=== PATIENT | male | born 1945 ===

== ENCOUNTER 2017-10-12 15:56 | Inpatient (IN) | payer MEDICARE, MEDICAID ==
[~2017-10-12] VITALS: Ht 165.1 cm; Wt 72.6 kg
[2017-10-12] MEDS ORDERED: Isovue-300 100ml vial INJ PRN ×2 (16:15→16:45)
[2017-10-12 16:42] LABS: EOSINOPHILS % (AUTO) 0.1 % (0.0-3.0); HEMOGLOBIN 13.6 G/DL (14.2-18.0); LYMPHOCYTES % (AUTO) 15.3 % (20.0-45.0); MEAN CORPUSCULAR VOLUME 94 FL (80-99); MONOCYTES % (AUTO) 7.3 % (1.0-10.0); NEUTROPHILS % (AUTO) 76.3 % (45.0-75.0); PLATELET COUNT 309 K/UL (150-450); RED BLOOD COUNT 4.36 M/UL (4.70-6.10); RED CELL DISTRIBUTION WIDTH 13.8 % (11.6-14.8); WHITE BLOOD COUNT 10.8 K/UL (4.8-10.8)
[2017-10-12 16:59] LABS: ANION GAP 8 mmol/L (5-15); BLOOD UREA NITROGEN 50 mg/dL (7-18); CALCIUM 9.7 MG/DL (8.5-10.1); CARBON DIOXIDE 31 MMOL/L (21-32); CHLORIDE 95 MMOL/L (98-107); CREATININE 1.5 MG/DL (0.55-1.30); POTASSIUM 5.3 MMOL/L (3.5-5.1); SODIUM 134 MMOL/L (136-145)
--- NOTE | 2017-10-12 16:59 | Emergency Room Report ---
History of Present Illness General Chief Complaint: Abdominal Pain Source: Patient Present Illness HPI This patient presents at the instruction of his primary care physician. The patient has had ongoing epigastric pain for several days. He is also had abdominal distention to the point where he has had protrusion of his umbilicus. He states that this is new for him. He has had normal bowel movements. He denies change in color of stool or consistency of stool. He denies nausea or vomiting. He states that he underwent an ultrasound ordered by his primary care physician Dr. Farmer. He was told something was wrong with his gallbladder and he was instructed to report to the hospital. He denies fever or chills. He denies chest pain or shortness of breath. He has no other complaints. Allergies: Coded Allergies: LORAZEPAM (Verified Allergy, Unknown, 10/12/17) Patient History Past Medical History: see triage record, HTN, COPD, other - PVD Social History: Reports: smoking; Denies: alcohol use, drug use Reviewed Nursing Documentation: PMH: Agreed; PSxH: Agreed Nursing Documentation-PMH Hx Cardiac Problems: Yes - PVD Hx Hypertension: Yes Hx COPD: Yes History Of Psychiatric Problem: Yes - ANXIETY Review of Systems All Other Systems: negative except mentioned in HPI Physical Exam Vital Signs Date Time Temp Pulse Resp B/P (MAP) Pulse Ox O2 Delivery O2 Flow Rate FiO2 10/12/17 15:50 98.3 94 18 108/84 92 Nasal Cannula 2.0 98.2 Sp02 EP Interpretation: reviewed, normal General Appearance: no apparent distress, alert, GCS 15, non-toxic Head: normocephalic, atraumatic Eyes: bilateral eye normal inspection, bilateral eye PERRL ENT: hearing grossly normal, normal pharynx, no angioedema, normal voice Neck: full range of motion, supple/symm/no masses Respiratory: chest non-tender, normal breath sounds, no respiratory distress, no retraction, no accessory muscle use, speaking full sentences, wheezing, expiration Cardiovascular #1: regular rate, rhythm, no edema Gastrointestinal: normal bowel sounds, soft, no guarding, no rebound, distended , tenderness - TTP in the epigastrium and over the umbilicus, reducible umbilical hernia. Rectal: deferred Musculoskeletal: back normal, gait/station normal, normal range of motion, non- tender Neurologic: alert, oriented x3, responsive, motor strength/tone normal, sensory intact, speech normal Psychiatric: judgement/insight normal, memory normal, mood/affect normal, no suicidal/homicidal ideation Skin: normal color, no rash, warm/dry, well hydrated Medical Decision Making Diagnostic Impression: Primary Impression: COPD exacerbation Additional Impression: Possible choledocholithiasis ER Course This patient presents with COPD exacerbation and ongoing abdominal pain. He does have a dilated common bile duct. He could have a choledocho cholelithiasis. The patient's gallbladder does not appear infected. CT of the abdomen and pelvis shows no acute findings. The patient was given albuterol and Atrovent nebulizer treatments with significant improvement in his work of breathing. The patient will be admitted for further evaluation and treatment and further assessment for possible choledochocholelithiasis. Laboratory Tests Test 10/12/17 16:25 White Blood Count 10.8 K/UL (4.8-10.8) Red Blood Count 4.36 M/UL (4.70-6.10) L Hemoglobin 13.6 G/DL (14.2-18.0) L Hematocrit 41.0 % (42.0-52.0) L Mean Corpuscular Volume 94 FL (80-99) Mean Corpuscular Hemoglobin 31.2 PG (27.0-31.0) H Mean Corpuscular Hemoglobin Concent 33.2 G/DL (32.0-36.0) Red Cell Distribution Width 13.8 % (11.6-14.8) Platelet Count 309 K/UL (150-450) Mean Platelet Volume 7.1 FL (6.5-10.1) Neutrophils (%) (Auto) 76.3 % (45.0-75.0) H Lymphocytes (%) (Auto) 15.3 % (20.0-45.0) L Monocytes (%) (Auto) 7.3 % (1.0-10.0) Eosinophils (%) (Auto) 0.1 % (0.0-3.0) Basophils (%) (Auto) 1.0 % (0.0-2.0) Sodium Level 134 MMOL/L (136-145) L Potassium Level 5.3 MMOL/L (3.5-5.1) H Chloride Level 95 MMOL/L (98-107) L Carbon Dioxide Level 31 MMOL/L (21-32) Anion Gap 8 mmol/L (5-15) Blood Urea Nitrogen 50 mg/dL (7-18) H Creatinine 1.5 MG/DL (0.55-1.30) H Estimate Glomerular Filtration Rate 46.3 mL/min (>60) Glucose Level 120 MG/DL (74-106) H Calcium Level 9.7 MG/DL (8.5-10.1) Total Bilirubin 0.3 MG/DL (0.2-1.0) Aspartate Amino Transferase (AST) 25 U/L (15-37) Alanine Aminotransferase (ALT) 28 U/L (12-78) Alkaline Phosphatase 101 U/L (46-116) Total Creatine Kinase 42 U/L (26-308) Troponin I 0.000 ng/mL (0.000-0.056) Total Protein 8.5 G/DL (6.4-8.2) H Albumin 3.9 G/DL (3.4-5.0) Globulin 4.6 g/dL Albumin/Globulin Ratio 0.8 (1.0-2.7) L Lipase 146 U/L (73-393) CT/MRI/US Diagnostic Results CT/MRI/US Diagnostic Results : Imaging Test Ordered: US RUQ, CT abd/pelvis Impression Dilated GBD. OTW Nml. See official report. CT abd/pelvis: Minimal nodular infiltrate at the right lung base. Pulmonary emphysema. Appendix not identified. No colitis or bowel instruction. Small fat containing umbilical hernia. See official report. Last Vital Signs Date Time Temp Pulse Resp B/P (MAP) Pulse Ox O2 Delivery O2 Flow Rate FiO2 10/12/17 15:50 98.3 94 18 108/84 92 Nasal Cannula 2.0 98.2 Disposition: ADMITTED INPATIENT Condition: Serious Jami Armstrong DO Oct 12, 2017 16:59
[2017-10-12 17:04] LABS: ALANINE AMINOTRANSFERASE 28 U/L (12-78); ALBUMIN 3.9 G/DL (3.4-5.0); ALBUMIN/GLOBULIN RATIO 0.8 (1.0-2.7); ALKALINE PHOSPHATASE 101 U/L (46-116); ASPARTATE AMINO TRANSFERASE 25 U/L (15-37); BILIRUBIN,TOTAL 0.3 MG/DL (0.2-1.0); CREATINE KINASE 42 U/L (26-308)
[2017-10-12] MEDS ORDERED: Albuterol ud Inhalation HHN ONE (17:30)
[2017-10-12] MEDS ORDERED: Ipratropium 0.02% Inh Soln 2.5ml UD HHN ONE (17:30)
[2017-10-12] MEDS ORDERED: CYCLOBENZAPRINE10 MG ORAL (18:02)
[2017-10-12] MEDS ORDERED: GABAPENTIN600 MG ORAL (18:02)
[2017-10-12] MEDS ORDERED: WARFARIN SODIUM5 MG ORAL (18:02)
[2017-10-12] MEDS ORDERED: FUROSEMIDE20 M1 ORAL (18:02)
[2017-10-12] MEDS ORDERED: LISINOPRIL10 MG ORAL (18:02)
[2017-10-12] MEDS ORDERED: OMEPRAZOLE20 M2 ORAL (18:02)
[2017-10-12] MEDS ORDERED: NORCO 5-325 TA1 EACH ORAL (18:02)
[2017-10-12] MEDS ORDERED: MELATONIN1 MG PO (18:02)
[2017-10-12] MEDS ORDERED: PREDNISONE10 MG ORAL (18:02)
[2017-10-12] MEDS ORDERED: VENTOLIN HFA18 GM INH (18:02)
[2017-10-12] MEDS ORDERED: NORCO 10-325 T1 EACH ORAL (18:02)
[2017-10-12] MEDS ORDERED: DOCUSATE SODIU100 MG ORAL (18:02)
[2017-10-12] MEDS ORDERED: DUONEB 0.5-3(2.53 ML HHN (18:02)
[2017-10-12] MEDS ORDERED: KLONOPIN0.5 MG ORAL (18:02)
[2017-10-12] MEDS ORDERED: VITAMIN B-1100 MG ORAL (18:02)
[2017-10-12] MEDS ORDERED: TRAMADOL HCL50 MG ORAL (18:02)
[2017-10-12] MEDS ORDERED: ACETAMINOPHEN325 M1 ORAL (18:02)
[2017-10-12] MEDS ORDERED: MULTIVITAMINS1 EAC8 ORAL (18:02)
[2017-10-12] MEDS ORDERED: AMLODIPINE BESYL5 MG ORAL (18:02)
[2017-10-12 19:20] VITALS: BP 116/80
[2017-10-12 20:42] LABS: APPEARANCE,URINE CLEAR; BILIRUBIN, URINE NEGATIVE (NEGATIVE); COLOR,URINE PALE YELLOW; GLUCOSE, URINE (UA) NEGATIVE (NEGATIVE); KETONES,URINE NEGATIVE (NEGATIVE); LEUKOCYTE ESTERASE ,URINE NEGATIVE (NEGATIVE); NITRITE,URINE NEGATIVE (NEGATIVE); PH,URINE 7 (4.5-8.0); PROTEIN,URINE NEGATIVE (NEGATIVE); UROBILINOGEN,URINE NORMAL MG/DL (0.0-1.0)
[2017-10-12 21:25] VITALS: BP 114/78
[2017-10-12 22:30] VITALS: BP 108/69
[2017-10-12] MEDS ORDERED: traMADol 50mg tab ORAL PRN (23:45)
[2017-10-12] MEDS ORDERED: HYDROcodone/Acetamin 10/325 tab ORAL PRN (23:45)
[2017-10-12] MEDS ORDERED: Docusate 100mg cap ORAL PRN (23:45)
[2017-10-13] VITALS: BP 127/78
[2017-10-13] MEDS ORDERED: Cyclobenzaprine 10mg Tab ORAL PRN (00:15)
[2017-10-13] MEDS: cefTRIAXone 1 GM in D5W 55 ML IVPB SCH (00:52)
[2017-10-13] MEDS: HYDROcodone/Acetamin 10/325 tab ORAL PRN ×2 (00:53→20:48)
[2017-10-13] MEDS: Albuterol/Ipratropium 3ml neb HHN PRN ×2 (01:22→06:58)
[2017-10-13 04:00] VITALS: BP 136/68
[2017-10-13 08:00] VITALS: BP 107/66
--- NOTE | 2017-10-13 08:31 | Diagnostic Imaging Report ---
Indication: Abdominal pain, abnormal renal function tests Technique: Holliday-scale and duplex images of the upper abdomen were obtained Comparison: none Findings: Gallbladder is unremarkable, without stones, wall thickening, nor pericholecystic fluid. Sonographic Sherwood's sign is negative. Common bile duct measures 9 mm in diameter. No intrahepatic biliary ductal dilatation. Liver demonstrates normal echogenicity, no focal abnormality. Portal vein and hepatic veins are patent. Pancreas is obscured by bowel gas. Bowel gas Spleen is unremarkable. Left kidney measures 10.7 cm in length. Right kidney measures 11.9 cm length. Both kidneys demonstrate normal echogenicity. There is no hydronephrosis. Left kidney demonstrates a small cyst . Non-aneurysmal abdominal aorta . Impression: Negative for gallstones Mildly ectatic common bile duct, probably related to patient's age but downstream obstruction not completely excludable. Correlate with liver function tests Incidental finding left renal cyst Note inability to visualize the pancreas
--- NOTE | 2017-10-13 08:49 | Diagnostic Imaging Report ---
Clinical Indication: Abdominal pain and distention x2 days Technique: Patient given oral contrast. IV administration nonionic contrast. Venous phase spiral acquisition obtained through the abdomen and pelvis. Multiplanar reconstructions were generated. Total dose length product 605.58 mGycm. CTDIvol(s) 11.46 mGy. Dose reduction achieved using automated exposure control Comparison: none Findings: The appendix is not definitely visualized, but there are no findings to suggest acute appendicitis. No small bowel distention or small bowel wall thickening. There is mild diastasis of the rectus abdominis tendon. No free or loculated intraperitoneal air or fluid is evident. The distal esophagus, stomach, duodenum are unremarkable. There is a tiny fat-containing umbilical hernia The gallbladder is unremarkable. There is mild ectasia of the common hepatic duct, which measures 9 mm diameter. The downstream common bile duct is normal in caliber, however, and no obstructive pathology is demonstrated. There is no central intrahepatic ductal dilatation. The liver and pancreas are unremarkable. The spleen demonstrates a calcification, presumably on the basis of old granulomatous disease. There is also an accessory splenule. The right kidney demonstrates a subcentimeter upper pole low-attenuation lesion which is too small to characterize. The left kidney is unremarkable. There is an inferior vena cava filter in good position. The bladder is somewhat distended. No pelvic mass or adenopathy. No retroperitoneal or mesenteric mass or adenopathy. Fibrotic changes, hyperinflation, and bronchial wall thickening are seen at the lung bases. There are degenerative spondylosis changes. There is are superior endplate compression fracture deformities of the T12 and L3 vertebral bodies which are age-indeterminate Impression: No definite acute process. The appendix could not be visualized but no findings to suggest acute appendicitis are evident Minimal ectasia of the common hepatic duct, but normal caliber common bile duct and no downstream obstructive lesion demonstrated. Probably related to age Subcentimeter low-attenuation lesion within the right kidney, too small to characterize, is likely benign simple cysts. No further follow-up necessary The included lung bases demonstrate COPD changes T12 and L3 superior endplate compression fracture deformities, age indeterminate. Consider MRI for further evaluation it this is clinically relevant Other findings as noted, including inferior vena cava filter, accessory splenule, granulomatous disease within the spleen, small fat-containing umbilical hernia This agrees with the preliminary interpretation provided overnight by [facility] teleradiology service. The CT scanner at [facility] is accredited by the [employer] and the scans are performed using protocols designed to limit radiation exposure to as low as reasonably achievable to attain images of sufficient resolution adequate for diagnostic evaluation.
--- NOTE | 2017-10-13 08:50 | Diagnostic Imaging Report ---
Indication: Shortness of breath Technique: One view of the chest Comparison: none Findings: Lungs are somewhat hyperinflated. Tiny calcified nodules are seen in the lungs bilaterally. No acute infiltrates, effusions, or congestion Impression: No acute process COPD changes Evidence old granulomatous disease
[2017-10-13] MEDS ORDERED: Lisinopril 20mg tab ORAL SCH (09:00)
[2017-10-13] MEDS ORDERED: clonazePAM 0.5mg tab ORAL SCH (09:00)
[2017-10-13] MEDS: Thiamine 100mg tab ORAL SCH (09:01)
[2017-10-13] MEDS: Multivitamin w/Minerals tab ORAL SCH (09:01)
[2017-10-13] MEDS: Solu-MEDROL 40mg Inj IVP SCH ×2 (09:01→20:47)
[2017-10-13] MEDS: Norco 5mg/325mg tab ORAL SCH ×2 (09:02→17:52)
[2017-10-13 09:23] LABS: INR 1.3 (0.9-1.1)
[2017-10-13] MEDS ORDERED: Promethazine/Codeine 5ml UD ORAL PRN (11:45)
--- NOTE | 2017-10-13 11:51 | Consultation ---
History of Present Illness General Date patient seen: Oct 13, 2017 Chief Complaint: Abdominal Pain Present Illness HPI 71 year old male with hx of COPD, presented to ER with CC of epigastric pain for several days. He is also had abdominal distention . He denies nausea or vomiting. He underwent an ultrasound as outpatient which showed something wrong with his gallbladder and he was instructed to report to the hospital. He denies fever or chills. He has chronic SOB and with chronic dyspnea. In recent days he also has lots of phlegm. Allergies: Coded Allergies: LORAZEPAM (Verified Allergy, Unknown, 10/12/17) Medication History Scheduled Amlodipine Besylate* (Amlodipine Besylate*), 5 MG ORAL DAILY, (Reported) Clonazepam* (Klonopin*), 0.5 MG ORAL BID, (Reported) Furosemide* (Lasix*), 20 MG ORAL BID, (Reported) Gabapentin* (Gabapentin*), 600 MG ORAL THREE TIMES A DAY, (Reported) Hydrocodone Bit/Acetaminophen 5-325* ([place] 5-325*), 1 TAB ORAL BID, (Reported) Lisinopril* (Lisinopril*), 10 MG ORAL DAILY, (Reported) Multivitamin With Minerals (Multivitamins With Minerals*), 1 TAB ORAL DAILY, ( Reported) Omeprazole (Omeprazole), 20 MG ORAL AC, (Reported) Prednisone* (Prednisone*), 10 MG ORAL DAILY, (Reported) Thiamine Hcl* (Vitamin B-1*), 100 MG ORAL DAILY, (Reported) Warfarin Sod* (Warfarin Sod*), 5 MG ORAL DAILY, (Reported) Scheduled PRN Acetaminophen* (Acetaminophen 325MG Tablet*), 650 MG ORAL Q6H PRN for Mild Pain/ Temp > 100.5, (Reported) Albuterol Sulfate (Ventolin Hfa), 2 PUFFS INH Q4HR PRN for Shortness of Breath, (Reported) Cyclobenzaprine Hcl* (Flexeril*), 10 MG ORAL Q12HR PRN for Muscle Spasm, ( Reported) Docusate Sodium* (Docusate Sodium*), 100 MG ORAL DAILY PRN for Constipation, ( Reported) Hydrocodone Bit/Acetaminophen 10-325* ([place] 10-325*), 1 TAB ORAL Q8HR PRN for Moderate Pain (Pain Scale 4-6), (Reported) Ipratropium/Albuterol Sulfate (DuoNeb 0.5-3(2.5)mg/3ml), 3 ML HHN Q4HR PRN for Shortness of Breath, (Reported) Melatonin (Melatonin), 1 MG PO BEDTIME PRN for Insomnia, (Reported) Tramadol Hcl* (Ultram*), 50 MG ORAL Q6H PRN for Moderate Pain (Pain Scale 4-6), (Reported) Patient History Healthcare decision maker Resuscitation status Do Not Resuscitate Advanced Directive on File Yes Past Medical/Surgical History Past Medical/Surgical History: (1) COPD (chronic obstructive pulmonary disease) (2) Hypertension Review of Systems All Other Systems: negative except mentioned in HPI Physical Exam General Appearance: WD/WN Lines, tubes and drains: peripheral HEENT: normocephalic, atraumatic Neck: non-tender, normal alignment Respiratory/Chest: chest wall non-tender, lungs clear Cardiovascular/Chest: normal peripheral pulses, normal rate Abdomen: normal bowel sounds Genitourinary/Rectal: normal genital exam Extremities: normal range of motion Skin Exam: normal pigmentation 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 normal Last 24 Hour Vital Signs Date Time Temp Pulse Resp B/P (MAP) Pulse Ox O2 Delivery O2 Flow Rate FiO2 10/13/17 09:00 Nasal Cannula 2.0 10/13/17 09:00 107/66 10/13/17 09:00 87 107/66 10/13/17 08:00 98.1 87 20 107/66 (80) 91 98.1 10/13/17 08:00 87 10/13/17 04:00 98.1 94 20 136/68 (90) 98 98.1 10/13/17 03:36 81 10/13/17 01:32 88 18 98 Nasal Cannula 2.0 10/13/17 01:22 95 Nasal Cannula 2.0 10/13/17 01:22 89 18 95 Nasal Cannula 2.0 28 10/13/17 01:22 Nasal Cannula 2.0 28 10/13/17 01:22 89 18 Nasal Cannula 2.0 28 10/13/17 00:00 91 10/13/17 00:00 98.7 91 20 127/78 (94) 94 98.7 10/12/17 23:00 Nasal Cannula 2.0 10/12/17 23:00 Nasal Cannula 2.0 10/12/17 22:46 98.4 62 20 108/69 91 Nasal Cannula 2.0 28 98.4 10/12/17 22:30 62 20 108/69 91 Nasal Cannula 2.0 10/12/17 21:25 98.4 60 20 114/78 92 Nasal Cannula 2.0 98.4 10/12/17 19:20 98.3 59 20 116/80 90 Nasal Cannula 2.0 98.3 10/12/17 17:59 82 20 99 Nasal Cannula 2.0 28 10/12/17 17:36 88 20 Nasal Cannula 2.0 28 10/12/17 17:31 88 20 96 Nasal Cannula 2.0 28 10/12/17 15:50 98.3 94 18 108/84 92 Nasal Cannula 2.0 98.2 Intake and Output 10/12/17 10/13/17 19:00 07:00 Intake Total 1000 ml 255 ml Output Total 700 ml Balance 1000 ml -445 ml Intake Oral 200 ml IV Total 1000 ml 55 ml Output Urine Total 700 ml # Voids 3 Laboratory Tests Test 10/12/17 16:25 10/12/17 19:54 10/13/17 09:00 White Blood Count 10.8 K/UL (4.8-10.8) Red Blood Count 4.36 M/UL (4.70-6.10) L Hemoglobin 13.6 G/DL (14.2-18.0) L Hematocrit 41.0 % (42.0-52.0) L Mean Corpuscular Volume 94 FL (80-99) Mean Corpuscular Hemoglobin 31.2 PG (27.0-31.0) H Mean Corpuscular Hemoglobin Concent 33.2 G/DL (32.0-36.0) Red Cell Distribution Width 13.8 % (11.6-14.8) Platelet Count 309 K/UL (150-450) Mean Platelet Volume 7.1 FL (6.5-10.1) Neutrophils (%) (Auto) 76.3 % (45.0-75.0) H Lymphocytes (%) (Auto) 15.3 % (20.0-45.0) L Monocytes (%) (Auto) 7.3 % (1.0-10.0) Eosinophils (%) (Auto) 0.1 % (0.0-3.0) Basophils (%) (Auto) 1.0 % (0.0-2.0) Sodium Level 134 MMOL/L (136-145) L Potassium Level 5.3 MMOL/L (3.5-5.1) H Chloride Level 95 MMOL/L (98-107) L Carbon Dioxide Level 31 MMOL/L (21-32) Anion Gap 8 mmol/L (5-15) Blood Urea Nitrogen 50 mg/dL (7-18) H Creatinine 1.5 MG/DL (0.55-1.30) H Estimat Glomerular Filtration Rate 46.3 mL/min (>60) Glucose Level 120 MG/DL (74-106) H Calcium Level 9.7 MG/DL (8.5-10.1) Total Bilirubin 0.3 MG/DL (0.2-1.0) Aspartate Amino Transf (AST/SGOT) 25 U/L (15-37) Alanine Aminotransferase (ALT/SGPT) 28 U/L (12-78) Alkaline Phosphatase 101 U/L (46-116) Total Creatine Kinase 42 U/L (26-308) Troponin I 0.000 ng/mL (0.000-0.056) Total Protein 8.5 G/DL (6.4-8.2) H Albumin 3.9 G/DL (3.4-5.0) Globulin 4.6 g/dL Albumin/Globulin Ratio 0.8 (1.0-2.7) L Lipase 146 U/L (73-393) Urine Color Pale yellow Urine Appearance Clear Urine pH 7 (4.5-8.0) Urine Specific [place] 1.010 (1.005-1.035) Urine Protein Negative (NEGATIVE) Urine Glucose (UA) Negative (NEGATIVE) Urine Ketones Negative (NEGATIVE) Urine Occult Blood Negative (NEGATIVE) Urine Nitrite Negative (NEGATIVE) Urine Bilirubin Negative (NEGATIVE) Urine Urobilinogen Normal MG/DL (0.0-1.0) Urine Leukocyte Esterase Negative (NEGATIVE) Prothrombin Time 13.4 SEC (9.30-11.50) H Prothromb Time International Ratio 1.3 (0.9-1.1) H Microbiology Date/Time Source Procedure Growth Status 10/12/17 19:00 Rectum VRE Culture Pending Resulted 10/12/17 19:00 Rectum - Preliminary Resulted Height (Feet): 5 Height (Inches): 8.00 Weight (Pounds): 160 Medications Current Medications Medications (Trade) Dose Ordered Sig/Simone Route PRN Reason Start Time Stop Time Status Last Admin Dose Admin Acetaminophen (Tylenol) 650 mg Q6H PRN ORAL Mild Pain/Temp > 100.5 10/13/17 00:15 11/12/17 00:14 Acetaminophen/ Hydrocodone Bitart ([place] 10/325) 1 tab Q8HR PRN ORAL Moderate Pain (Pain Scale 4-6) 10/12/17 23:45 10/19/17 23:44 10/13/17 00:53 Acetaminophen/ Hydrocodone Bitart ([place] 5/325) 1 tab BID ORAL 10/13/17 09:00 10/20/17 08:59 10/13/17 09:02 Albuterol/ Ipratropium (Albuterol/ Ipratropium) 3 ml Q4HR PRN HHN Shortness of Breath 10/12/17 23:45 10/17/17 23:44 10/13/17 06:58 Amlodipine Besylate (Norvasc) 5 mg DAILY ORAL 10/13/17 09:00 11/12/17 08:59 Barium Sulfate (Readi-Cat 2) 450 ml NOW PRN ORAL Radiology Procedure 10/12/17 16:45 10/14/17 16:45 Ceftriaxone Sodium 1 gm/ Dextrose 55 ml @ 110 mls/hr Q24H IVPB 10/13/17 00:00 10/20/17 00:00 10/13/17 00:52 Clonazepam (KlonoPIN) 0.5 mg BID ORAL 10/13/17 09:00 10/20/17 08:59 10/13/17 09:01 Cyclobenzaprine HCl (Flexeril) 10 mg Q12HR PRN ORAL Muscle Spasm 10/13/17 00:15 11/12/17 00:14 Docusate Sodium (Colace) 100 mg DAILY PRN ORAL Constipation 10/12/17 23:45 11/11/17 23:44 Furosemide (Lasix) 20 mg BID ORAL 10/13/17 09:00 11/12/17 08:59 10/13/17 09:02 Gabapentin (Neurontin) 600 mg THREE TIMES A DAY ORAL 10/13/17 09:00 11/12/17 08:59 10/13/17 09:01 Iopamidol (Isovue-300 100ml) 100 ml NOW PRN INJ Radiology Procedure 10/12/17 16:45 Lisinopril (Prinivil) 10 mg DAILY ORAL 10/13/17 09:00 11/12/17 08:59 Methylprednisolone Sodium Succinate (Solu-MEDROL) 40 mg EVERY 12 HOURS IVP 10/13/17 09:00 11/12/17 08:59 10/13/17 09:01 Morphine Sulfate (Morphine Sulfate) 1 mg EVERY 6 HOURS PRN IVP Moderate Pain (Pain Scale 4-6) 10/12/17 23:45 10/19/17 23:44 Multivitamins Therapeutic (Therapeutic Multivitamin) 1 ea DAILY ORAL 10/13/17 09:00 11/12/17 08:59 10/13/17 09:01 Pantoprazole (Protonix) 40 mg BEFORE BREAKFAST ORAL 10/13/17 06:30 11/12/17 06:29 10/13/17 06:18 Thiamine HCl (Vitamin B1) 100 mg DAILY ORAL 10/13/17 09:00 11/12/17 08:59 10/13/17 09:01 Tramadol HCl (Ultram) 50 mg Q6H PRN ORAL Moderate Pain (Pain Scale 4-6) 10/12/17 23:45 10/19/17 23:44 Warfarin Sodium (Coumadin per pharmacy) 1 ea DAILY PRN MISC Per RX Protocol 10/13/17 08:30 11/12/17 08:29 Warfarin Sodium (Coumadin) 5 mg COUMADIN ORAL 10/13/17 17:00 10/18/17 16:59 Assessment/Plan Problem List: (1) COPD exacerbation ICD Codes: J44.1 - Chronic obstructive pulmonary disease with (acute) exacerbation SNOMED: 837968122 (2) Chronic anticoagulation ICD Codes: Z79.01 - 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
[2017-10-13 12:00] VITALS: BP 127/83
--- NOTE | 2017-10-13 12:18 | Cardiology Report ---
APPROVED REPORT EKG Measurement Heart [id number] Normal sinus rhythm Normal ECG
--- NOTE | 2017-10-13 12:31 | Consultation ---
History of Present Illness General Date patient seen: Oct 13, 2017 Chief Complaint: Abdominal Pain Present Illness HPI the pt is a 71 male with anxiety depression and epigastric pain for several days. He is also had abdominal distention to the point where he has had protrusion of his umbilicus. the pt is currently on klonopin and still has some anxiety. no depressive sxs. no si/hi Allergies: Coded Allergies: LORAZEPAM (Verified Allergy, Unknown, 10/12/17) Medication History Scheduled Amlodipine Besylate* (Amlodipine Besylate*), 5 MG ORAL DAILY, (Reported) Clonazepam* (Klonopin*), 0.5 MG ORAL BID, (Reported) Furosemide* (Lasix*), 20 MG ORAL BID, (Reported) Gabapentin* (Gabapentin*), 600 MG ORAL THREE TIMES A DAY, (Reported) Hydrocodone Bit/Acetaminophen 5-325* ([place] 5-325*), 1 TAB ORAL BID, (Reported) Lisinopril* (Lisinopril*), 10 MG ORAL DAILY, (Reported) Multivitamin With Minerals (Multivitamins With Minerals*), 1 TAB ORAL DAILY, ( Reported) Omeprazole (Omeprazole), 20 MG ORAL AC, (Reported) Prednisone* (Prednisone*), 10 MG ORAL DAILY, (Reported) Thiamine Hcl* (Vitamin B-1*), 100 MG ORAL DAILY, (Reported) Warfarin Sod* (Warfarin Sod*), 5 MG ORAL DAILY, (Reported) Scheduled PRN Acetaminophen* (Acetaminophen 325MG Tablet*), 650 MG ORAL Q6H PRN for Mild Pain/ Temp > 100.5, (Reported) Albuterol Sulfate (Ventolin Hfa), 2 PUFFS INH Q4HR PRN for Shortness of Breath, (Reported) Cyclobenzaprine Hcl* (Flexeril*), 10 MG ORAL Q12HR PRN for Muscle Spasm, ( Reported) Docusate Sodium* (Docusate Sodium*), 100 MG ORAL DAILY PRN for Constipation, ( Reported) Hydrocodone Bit/Acetaminophen 10-325* ([place] 10-325*), 1 TAB ORAL Q8HR PRN for Moderate Pain (Pain Scale 4-6), (Reported) Ipratropium/Albuterol Sulfate (DuoNeb 0.5-3(2.5)mg/3ml), 3 ML HHN Q4HR PRN for Shortness of Breath, (Reported) Melatonin (Melatonin), 1 MG PO BEDTIME PRN for Insomnia, (Reported) Tramadol Hcl* (Ultram*), 50 MG ORAL Q6H PRN for Moderate Pain (Pain Scale 4-6), (Reported) Patient History Limited by: medical condition History Provided By: Patient, Medical Record, PMD Healthcare decision maker Resuscitation status Do Not Resuscitate Advanced Directive on File Yes Past Medical/Surgical History Past Medical/Surgical History: (1) Pain (2) pain (3) COPD (chronic obstructive pulmonary disease) (4) Hypertension (5) Chronic anticoagulation (6) Biliary colic (7) COPD exacerbation Review of Systems Psychiatric: Reports: prior hx, anxiety, depressed feelings, emotional problems Physical Exam General Appearance: no apparent distress, alert Neurologic: oriented x 3, responsive, depressed affect Last 24 Hour Vital Signs Date Time Temp Pulse Resp B/P (MAP) Pulse Ox O2 Delivery O2 Flow Rate FiO2 10/13/17 09:00 Nasal Cannula 2.0 10/13/17 09:00 107/66 10/13/17 09:00 87 107/66 10/13/17 08:00 98.1 87 20 107/66 (80) 91 98.1 10/13/17 08:00 87 10/13/17 04:00 98.1 94 20 136/68 (90) 98 98.1 10/13/17 03:36 81 10/13/17 01:32 88 18 98 Nasal Cannula 2.0 28 10/13/17 01:22 95 Nasal Cannula 2.0 28 10/13/17 01:22 89 18 95 Nasal Cannula 2.0 28 10/13/17 01:22 Nasal Cannula 2.0 28 10/13/17 01:22 89 18 Nasal Cannula 2.0 28 10/13/17 00:00 91 10/13/17 00:00 98.7 91 20 127/78 (94) 94 98.7 10/12/17 23:00 Nasal Cannula 2.0 10/12/17 23:00 Nasal Cannula 2.0 10/12/17 22:46 98.4 62 20 108/69 91 Nasal Cannula 2.0 28 98.4 10/12/17 22:30 62 20 108/69 91 Nasal Cannula 2.0 10/12/17 21:25 98.4 60 20 114/78 92 Nasal Cannula 2.0 98.4 10/12/17 19:20 98.3 59 20 116/80 90 Nasal Cannula 2.0 98.3 10/12/17 17:59 82 20 99 Nasal Cannula 2.0 28 10/12/17 17:36 88 20 Nasal Cannula 2.0 28 10/12/17 17:31 88 20 96 Nasal Cannula 2.0 28 10/12/17 15:50 98.3 94 18 108/84 92 Nasal Cannula 2.0 98.2 Intake and Output 10/12/17 10/13/17 19:00 07:00 Intake Total 1000 ml 255 ml Output Total 700 ml Balance 1000 ml -445 ml Intake Oral 200 ml IV Total 1000 ml 55 ml Output Urine Total 700 ml # Voids 3 Laboratory Tests Test 10/12/17 16:25 10/12/17 19:54 10/13/17 09:00 White Blood Count 10.8 K/UL (4.8-10.8) Red Blood Count 4.36 M/UL (4.70-6.10) L Hemoglobin 13.6 G/DL (14.2-18.0) L Hematocrit 41.0 % (42.0-52.0) L Mean Corpuscular Volume 94 FL (80-99) Mean Corpuscular Hemoglobin 31.2 PG (27.0-31.0) H Mean Corpuscular Hemoglobin Concent 33.2 G/DL (32.0-36.0) Red Cell Distribution Width 13.8 % (11.6-14.8) Platelet Count 309 K/UL (150-450) Mean Platelet Volume 7.1 FL (6.5-10.1) Neutrophils (%) (Auto) 76.3 % (45.0-75.0) H Lymphocytes (%) (Auto) 15.3 % (20.0-45.0) L Monocytes (%) (Auto) 7.3 % (1.0-10.0) Eosinophils (%) (Auto) 0.1 % (0.0-3.0) Basophils (%) (Auto) 1.0 % (0.0-2.0) Sodium Level 134 MMOL/L (136-145) L Potassium Level 5.3 MMOL/L (3.5-5.1) H Chloride Level 95 MMOL/L (98-107) L Carbon Dioxide Level 31 MMOL/L (21-32) Anion Gap 8 mmol/L (5-15) Blood Urea Nitrogen 50 mg/dL (7-18) H Creatinine 1.5 MG/DL (0.55-1.30) H Estimat Glomerular Filtration Rate 46.3 mL/min (>60) Glucose Level 120 MG/DL (74-106) H Calcium Level 9.7 MG/DL (8.5-10.1) Total Bilirubin 0.3 MG/DL (0.2-1.0) Aspartate Amino Transf (AST/SGOT) 25 U/L (15-37) Alanine Aminotransferase (ALT/SGPT) 28 U/L (12-78) Alkaline Phosphatase 101 U/L (46-116) Total Creatine Kinase 42 U/L (26-308) Troponin I 0.000 ng/mL (0.000-0.056) Total Protein 8.5 G/DL (6.4-8.2) H Albumin 3.9 G/DL (3.4-5.0) Globulin 4.6 g/dL Albumin/Globulin Ratio 0.8 (1.0-2.7) L Lipase 146 U/L (73-393) Urine Color Pale yellow Urine Appearance Clear Urine pH 7 (4.5-8.0) Urine Specific [place] 1.010 (1.005-1.035) Urine Protein Negative (NEGATIVE) Urine Glucose (UA) Negative (NEGATIVE) Urine Ketones Negative (NEGATIVE) Urine Occult Blood Negative (NEGATIVE) Urine Nitrite Negative (NEGATIVE) Urine Bilirubin Negative (NEGATIVE) Urine Urobilinogen Normal MG/DL (0.0-1.0) Urine Leukocyte Esterase Negative (NEGATIVE) Prothrombin Time 13.4 SEC (9.30-11.50) H Prothromb Time International Ratio 1.3 (0.9-1.1) H Microbiology Date/Time Source Procedure Growth Status 10/12/17 19:00 Rectum VRE Culture Pending Resulted 10/12/17 19:00 Rectum - Preliminary Resulted Height (Feet): 5 Height (Inches): 8.00 Weight (Pounds): 160 Medications Current Medications Medications (Trade) Dose Ordered Sig/Simone Route PRN Reason Start Time Stop Time Status Last Admin Dose Admin Acetaminophen (Tylenol) 650 mg Q6H PRN ORAL Mild Pain/Temp > 100.5 10/13/17 00:15 11/12/17 00:14 Acetaminophen/ Hydrocodone Bitart ([place] 10/325) 1 tab Q8HR PRN ORAL Moderate Pain (Pain Scale 4-6) 10/12/17 23:45 10/19/17 23:44 10/13/17 00:53 Acetaminophen/ Hydrocodone Bitart ([place] 5/325) 1 tab BID ORAL 10/13/17 09:00 10/20/17 08:59 10/13/17 09:02 Albuterol/ Ipratropium (Albuterol/ Ipratropium) 3 ml Q4HR PRN HHN Shortness of Breath 10/12/17 23:45 10/17/17 23:44 10/13/17 06:58 Albuterol/ Ipratropium (Albuterol/ Ipratropium) 3 ml Q6HRT HHN 10/13/17 13:00 10/18/17 12:59 Amlodipine Besylate (Norvasc) 5 mg DAILY ORAL 10/13/17 09:00 11/12/17 08:59 Barium Sulfate (Readi-Cat 2) 450 ml NOW PRN ORAL Radiology Procedure 10/12/17 16:45 10/14/17 16:45 Ceftriaxone Sodium 1 gm/ Dextrose 55 ml @ 110 mls/hr Q24H IVPB 10/13/17 00:00 10/20/17 00:00 10/13/17 00:52 Clonazepam (KlonoPIN) 0.5 mg BID ORAL 10/13/17 09:00 10/20/17 08:59 10/13/17 09:01 Cyclobenzaprine HCl (Flexeril) 10 mg Q12HR PRN ORAL Muscle Spasm 10/13/17 00:15 11/12/17 00:14 Docusate Sodium (Colace) 100 mg DAILY PRN ORAL Constipation 10/12/17 23:45 11/11/17 23:44 Furosemide (Lasix) 20 mg BID ORAL 10/13/17 09:00 11/12/17 08:59 10/13/17 09:02 Gabapentin (Neurontin) 600 mg THREE TIMES A DAY ORAL 10/13/17 09:00 11/12/17 08:59 10/13/17 09:01 Iopamidol (Isovue-300 100ml) 100 ml NOW PRN INJ Radiology Procedure 10/12/17 16:45 Lisinopril (Prinivil) 10 mg DAILY ORAL 10/13/17 09:00 11/12/17 08:59 Methylprednisolone Sodium Succinate (Solu-MEDROL) 40 mg EVERY 12 HOURS IVP 10/13/17 09:00 11/12/17 08:59 10/13/17 09:01 Morphine Sulfate (Morphine Sulfate) 1 mg EVERY 6 HOURS PRN IVP Moderate Pain (Pain Scale 4-6) 10/12/17 23:45 10/19/17 23:44 Multivitamins Therapeutic (Therapeutic Multivitamin) 1 ea DAILY ORAL 10/13/17 09:00 11/12/17 08:59 10/13/17 09:01 Nicotine (Nicoderm) 1 patch DAILY TDERMAL 10/13/17 12:00 11/12/17 11:59 Pantoprazole (Protonix) 40 mg BEFORE BREAKFAST ORAL 10/13/17 06:30 11/12/17 06:29 10/13/17 06:18 Promethazine HCl/ Codeine (Phenergan with Codeine) 5 ml Q4H PRN ORAL For Cough 10/13/17 11:45 11/12/17 11:44 Theophylline (Kulwant-Dur) 100 mg EVERY 12 HOURS ORAL 10/13/17 21:00 11/12/17 20:59 Thiamine HCl (Vitamin B1) 100 mg DAILY ORAL 10/13/17 09:00 11/12/17 08:59 10/13/17 09:01 Tramadol HCl (Ultram) 50 mg Q6H PRN ORAL Moderate Pain (Pain Scale 4-6) 10/12/17 23:45 10/19/17 23:44 Warfarin Sodium (Coumadin per pharmacy) 1 ea DAILY PRN MISC Per RX Protocol 10/13/17 08:30 11/12/17 08:29 Warfarin Sodium (Coumadin) 5 mg COUMADIN ORAL 10/13/17 17:00 10/18/17 16:59 Assessment/Plan Status: stable Assessment/Plan Anxiety d/o MDD Klonopin .5mg po bid provided debby/Lisy Abebe MD Oct 13, 2017 12:31
[2017-10-13] MEDS: Albuterol/Ipratropium 3ml neb HHN SCH ×2 (13:05→19:46)
--- NOTE | 2017-10-13 14:32 | GI Initial Consult Note ---
History of Present Illness General Date patient seen: Oct 13, 2017 Time patient seen: 14:31 Reason for Hospitalization: Abdominal Pain Referring physician: BENJAMIN CRISTOBAL Reason for Consultation: ABDOMINAL PAIN Present Illness HPI This patient presents at the instruction of his primary care physician. The patient has had ongoing epigastric pain for several days. He is also had abdominal distention to the point where he has had protrusion of his umbilicus. He states that this is new for him. He has had normal bowel movements. He denies change in color of stool or consistency of stool. He denies nausea or vomiting. He states that he underwent an ultrasound ordered by his primary care physician Dr. Cristobal. He was told something was wrong with his gallbladder and he was instructed to report to the hospital. He denies fever or chills. He denies chest pain or shortness of breath. He has no other complaints. GI consulted for abdominal pain. Pt seen, awake A&Ox4 NAD with no active s/sx of N/V/D. C/o of severe epigastric pain 09/26, abdominal bloating with protruding umbilical hernia. Denies any diarrhea, states he had a BM today which was soft. Has chronic back pain, takes Norcoo + Colace for his OIC. Abdominal U/S/CT shows CBD dilation 9mm, otherwise no definite acute process. Patient has no history of endoscopy / colonoscopy. Home Meds Reported Medications Albuterol Sulfate (VENTOLIN HFA) 18 Gm Hfa.aer.ad, 2 PUFFS INH Q4HR PRN for Shortness of Breath 10/12/17 Tramadol Hcl* (ULTRAM*) 50 Mg Tablet, 50 MG ORAL Q6H PRN for Moderate Pain ( Pain Scale 4-6) 10/12/17 Thiamine Hcl* (VITAMIN B-1*) 100 Mg Tablet, 100 MG ORAL DAILY 10/12/17 Prednisone* (PREDNISONE*) 10 Mg Tablet, 10 MG ORAL DAILY 10/12/17 Omeprazole (OMEPRAZOLE) 20 Mg Capsule., 20 MG ORAL AC 10/12/17 Hydrocodone Bit/Acetaminophen 5-325* ([place] 5-325*) 1 Each Tablet, 1 TAB ORAL BID for PAIN MANAGEMENT 10/12/17 Hydrocodone Bit/Acetaminophen 10-325* ([place] 10-325*) 1 Each Tablet, 1 TAB ORAL Q8HR PRN for Moderate Pain (Pain Scale 4-6), 0 Refills PRN PAIN 10/12/17 Multivitamin With Minerals (MULTIVITAMINS WITH MINERALS*) 1 Each Tablet, 1 TAB ORAL DAILY 10/12/17 Melatonin (MELATONIN) 1 Mg Tablet, 1 MG PO BEDTIME PRN for Insomnia 10/12/17 Lisinopril* (LISINOPRIL*) 10 Mg Tablet, 10 MG ORAL DAILY 10/12/17 Furosemide* (LASIX*) 20 Mg Tablet, 20 MG ORAL BID 10/12/17 Gabapentin* (GABAPENTIN*) 600 Mg Tablet, 600 MG ORAL THREE TIMES A DAY 10/12/17 Ipratropium/Albuterol Sulfate (DuoNeb 0.5-3(2.5)mg/3ml) 3 Ml Ampul.neb, 3 ML HHN Q4HR PRN for Shortness of Breath 10/12/17 Docusate Sodium* (DOCUSATE SODIUM*) 100 Mg Capsule, 100 MG ORAL DAILY PRN for Constipation 10/12/17 Cyclobenzaprine Hcl* (FLEXERIL*) 10 Mg Tablet, 10 MG ORAL Q12HR PRN for Muscle Spasm 10/12/17 Warfarin Sod* (WARFARIN SOD*) 5 Mg Tablet, 5 MG ORAL DAILY 10/12/17 Clonazepam* (KLONOPIN*) 0.5 Mg Tablet, 0.5 MG ORAL BID 10/12/17 Amlodipine Besylate* (AMLODIPINE BESYLATE*) 5 Mg Tablet, 5 MG ORAL DAILY 10/12/17 Acetaminophen* (ACETAMINOPHEN 325MG TABLET*) 325 Mg Tablet, 650 MG ORAL Q6H PRN for Mild Pain/Temp > 100.5 10/12/17 Med list reviewed/reconciled: Yes Allergies: Coded Allergies: LORAZEPAM (Verified Allergy, Unknown, 10/12/17) Patient History History Provided By: Patient, Medical Record PMH Narrative Past Medical History: see triage record, HTN, COPD, other - PVD Social History: Reports: smoking; Denies: alcohol use, drug use Reviewed Nursing Documentation: PMH: Agreed; PSxH: Agreed Nursing Documentation-PMH Hx Cardiac Problems: Yes - PVD Hx Hypertension: Yes Hx COPD: Yes History Of Psychiatric Problem: Yes - ANXIETY Social History: Reports: smoking - life long Review of Systems All Other Systems: negative except mentioned in HPI Physical Exam Vital Signs Date Time Temp Pulse Resp B/P (MAP) Pulse Ox O2 Delivery O2 Flow Rate FiO2 10/12/17 15:50 98.3 94 18 108/84 92 Nasal Cannula 2.0 98.2 10/12/17 17:31 28 Sp02 EP Interpretation: reviewed, normal Labs Laboratory Tests Test 10/12/17 16:25 10/12/17 19:54 10/13/17 09:00 White Blood Count 10.8 K/UL (4.8-10.8) Red Blood Count 4.36 M/UL (4.70-6.10) L Hemoglobin 13.6 G/DL (14.2-18.0) L Hematocrit 41.0 % (42.0-52.0) L Mean Corpuscular Volume 94 FL (80-99) Mean Corpuscular Hemoglobin 31.2 PG (27.0-31.0) H Mean Corpuscular Hemoglobin Concent 33.2 G/DL (32.0-36.0) Red Cell Distribution Width 13.8 % (11.6-14.8) Platelet Count 309 K/UL (150-450) Mean Platelet Volume 7.1 FL (6.5-10.1) Neutrophils (%) (Auto) 76.3 % (45.0-75.0) H Lymphocytes (%) (Auto) 15.3 % (20.0-45.0) L Monocytes (%) (Auto) 7.3 % (1.0-10.0) Eosinophils (%) (Auto) 0.1 % (0.0-3.0) Basophils (%) (Auto) 1.0 % (0.0-2.0) Sodium Level 134 MMOL/L (136-145) L Potassium Level 5.3 MMOL/L (3.5-5.1) H Chloride Level 95 MMOL/L (98-107) L Carbon Dioxide Level 31 MMOL/L (21-32) Anion Gap 8 mmol/L (5-15) Blood Urea Nitrogen 50 mg/dL (7-18) H Creatinine 1.5 MG/DL (0.55-1.30) H Estimat Glomerular Filtration Rate 46.3 mL/min (>60) Glucose Level 120 MG/DL (74-106) H Calcium Level 9.7 MG/DL (8.5-10.1) Total Bilirubin 0.3 MG/DL (0.2-1.0) Aspartate Amino Transf (AST/SGOT) 25 U/L (15-37) Alanine Aminotransferase (ALT/SGPT) 28 U/L (12-78) Alkaline Phosphatase 101 U/L (46-116) Total Creatine Kinase 42 U/L (26-308) Troponin I 0.000 ng/mL (0.000-0.056) Total Protein 8.5 G/DL (6.4-8.2) H Albumin 3.9 G/DL (3.4-5.0) Globulin 4.6 g/dL Albumin/Globulin Ratio 0.8 (1.0-2.7) L Lipase 146 U/L (73-393) Urine Color Pale yellow Urine Appearance Clear Urine pH 7 (4.5-8.0) Urine Specific [place] 1.010 (1.005-1.035) Urine Protein Negative (NEGATIVE) Urine Glucose (UA) Negative (NEGATIVE) Urine Ketones Negative (NEGATIVE) Urine Occult Blood Negative (NEGATIVE) Urine Nitrite Negative (NEGATIVE) Urine Bilirubin Negative (NEGATIVE) Urine Urobilinogen Normal MG/DL (0.0-1.0) Urine Leukocyte Esterase Negative (NEGATIVE) Prothrombin Time 13.4 SEC (9.30-11.50) H Prothromb Time International Ratio 1.3 (0.9-1.1) H General Appearance: well appearing, no apparent distress, alert Head: normocephalic EENT: PERRL/EOMI, normal ENT inspection Neck: supple Respiratory: normal breath sounds, no respiratory distress Cardiovascular: normal rate Gastrointestinal: normal inspection, non tender, soft, normal bowel sounds, distended Rectal: deferred Genitourinary: deferred Musculoskeletal: normal inspection, back normal Neurologic: normal inspection, alert, oriented x3, responsive Psychiatric: normal inspection, judgement/insight normal, memory normal Skin: normal inspection, normal color, no rash, warm/dry, palpation normal, well hydrated Lymphatic: normal inspection, no adenopathy Current Medications Current Medications Medications (Trade) Dose Ordered Sig/Simone Route PRN Reason Start Time Stop Time Status Last Admin Dose Admin Acetaminophen (Tylenol) 650 mg Q6H PRN ORAL Mild Pain/Temp > 100.5 10/13/17 00:15 11/12/17 00:14 Acetaminophen/ Hydrocodone Bitart ([place] 10/325) 1 tab Q8HR PRN ORAL Moderate Pain (Pain Scale 4-6) 10/12/17 23:45 10/19/17 23:44 10/13/17 00:53 Acetaminophen/ Hydrocodone Bitart ([place] 5/325) 1 tab BID ORAL 10/13/17 09:00 10/20/17 08:59 10/13/17 09:02 Albuterol/ Ipratropium (Albuterol/ Ipratropium) 3 ml Q4HR PRN HHN Shortness of Breath 10/12/17 23:45 10/17/17 23:44 10/13/17 06:58 Albuterol/ Ipratropium (Albuterol/ Ipratropium) 3 ml Q6HRT HHN 10/13/17 13:00 10/18/17 12:59 10/13/17 13:05 Amlodipine Besylate (Norvasc) 5 mg DAILY ORAL 10/13/17 09:00 11/12/17 08:59 Barium Sulfate (Readi-Cat 2) 450 ml NOW PRN ORAL Radiology Procedure 10/12/17 16:45 10/14/17 16:45 Ceftriaxone Sodium 1 gm/ Dextrose 55 ml @ 110 mls/hr Q24H IVPB 10/13/17 00:00 10/20/17 00:00 10/13/17 00:52 Clonazepam (KlonoPIN) 0.5 mg BID ORAL 10/13/17 09:00 10/20/17 08:59 10/13/17 09:01 Cyclobenzaprine HCl (Flexeril) 10 mg Q12HR PRN ORAL Muscle Spasm 10/13/17 00:15 11/12/17 00:14 Docusate Sodium (Colace) 100 mg DAILY PRN ORAL Constipation 10/12/17 23:45 11/11/17 23:44 Furosemide (Lasix) 20 mg BID ORAL 10/13/17 09:00 11/12/17 08:59 10/13/17 09:02 Gabapentin (Neurontin) 600 mg THREE TIMES A DAY ORAL 10/13/17 09:00 11/12/17 08:59 10/13/17 12:50 Iopamidol (Isovue-300 100ml) 100 ml NOW PRN INJ Radiology Procedure 10/12/17 16:45 Methylprednisolone Sodium Succinate (Solu-MEDROL) 40 mg EVERY 12 HOURS IVP 10/13/17 09:00 11/12/17 08:59 10/13/17 09:01 Morphine Sulfate (Morphine Sulfate) 1 mg EVERY 6 HOURS PRN IVP Moderate Pain (Pain Scale 4-6) 10/12/17 23:45 10/19/17 23:44 Multivitamins Therapeutic (Therapeutic Multivitamin) 1 ea DAILY ORAL 10/13/17 09:00 11/12/17 08:59 10/13/17 09:01 Nicotine (Nicoderm) 1 patch DAILY TDERMAL 10/13/17 12:00 11/12/17 11:59 10/13/17 13:27 Pantoprazole (Protonix) 40 mg BEFORE BREAKFAST ORAL 10/13/17 06:30 11/12/17 06:29 10/13/17 06:18 Promethazine HCl/ Codeine (Phenergan with Codeine) 5 ml Q4H PRN ORAL For Cough 10/13/17 11:45 11/12/17 11:44 Theophylline (Kulwant-Dur) 100 mg EVERY 12 HOURS ORAL 10/13/17 21:00 11/12/17 20:59 Thiamine HCl (Vitamin B1) 100 mg DAILY ORAL 10/13/17 09:00 11/12/17 08:59 10/13/17 09:01 Tramadol HCl (Ultram) 50 mg Q6H PRN ORAL Moderate Pain (Pain Scale 4-6) 10/12/17 23:45 10/19/17 23:44 Warfarin Sodium (Coumadin per pharmacy) 1 ea DAILY PRN MISC Per RX Protocol 10/13/17 08:30 11/12/17 08:29 Warfarin Sodium (Coumadin) 5 mg COUMADIN ORAL 10/13/17 17:00 10/18/17 16:59 GI: Plan Problems: (1) Bloating (2) Epigastric pain (3) COPD exacerbation (4) Biliary colic (5) Pain Plan abdominal U/S reviewed >>Common bile duct measures 9 mm in diameter. CTAP reviewed >> Impression: No definite acute process. will consider endoscopy if patient continues to have persistent epigastric pain >> patient is on coumarin which will need to be stopped min x48 hours prior procedure. ok to advance diet electrolyte correction bowel regime probiotics ppi simethicone prn fu labs Discussed with Dr. Barron. Thank you for this patient referral, we will follow. The patient was seen and examined at bedside and all new and available data was reviewed in the patients chart. I agree with the above findings, impression and plan. (Patient seen earlier today. Signature stamp does not reflect patient encounter time.). - [facility] Oct 13, 2017 14:32
[2017-10-13] MEDS ORDERED: Simethicone 80mg tab ORAL PRN (15:00)
[2017-10-13 16:00] VITALS: BP 113/68
[2017-10-13] MEDS ORDERED: Albuterol/Ipratropium 3ml neb HHN PRN (16:15)
[2017-10-13] MEDS ORDERED: Warfarin Sodium 5mg ORAL SCH (17:00)
[2017-10-13] MEDS: Docusate 100mg cap ORAL SCH (17:51)
[2017-10-13] MEDS: clonazePAM 0.5mg tab ORAL SCH (17:51)
[2017-10-13] MEDS: Lactobacillus-GG tablet ORAL SCH (17:51)
[2017-10-13 20:00] VITALS: BP 103/61
[2017-10-13] MEDS: Theophylline ER 100mg ORAL SCH (20:47)
[2017-10-13] MEDS ORDERED: Miralax 17gm pkt ORAL SCH (21:00)
--- NOTE | 2017-10-13 23:15 | History and Physical Report ---
DATE OF ADMISSION: 10/12/2017 NOTE: POOR AUDIO HISTORY OF PRESENT ILLNESS: This is a 71-year-old white male who came to the emergency room for acute shortness of breath, hypoxia, COPD exacerbation, also severe abdominal pain with nausea and vomiting. The patient denies any fever or chills. He has cough with sputum production. He has no chest pain. No palpitation. He is complaining of generalized pain in both shoulders as well as the back . ALLERGIES: NKA. MEDICATIONS: See the list. . FAMILY HISTORY: Noncontributory. SOCIAL HISTORY: He lives in a shelter. Did smoke cigarettes about a pack a day, he is cutting down. He used to drink, he quit. Illegal drugs, he denies . REVIEW OF SYSTEMS: Generalized weakness, tired, fatigue. He has PHYSICAL EXAMINATION: GENERAL: This is an elderly male with dementia, complaining of pain on the upper back and upper abdomen. VITAL SIGNS: Blood pressure is 140/70, pulse 74, respirations 18, . HEENT: AT/NC. EOMI. PERRLA. NECK: Supple. No JVD. CHEST: Bilateral scattered wheezing and crackles. CARDIOVASCULAR: Regular rhythm. No gallop. No murmur. ABDOMEN: Soft. EXTREMITIES: No CCE. NEUROLOGIC: Generalized weakness. GENITOURINARY: Deferred. LABORATORY DATA: White counts are 10,000, hemoglobin is 13, hematocrit is normal. Chemistry panel, BUN and creatinine high, potassium is high. ASSESSMENT: 1. Chronic obstructive pulmonary disease. 2. Hyperkalemia. 3. Recurrent nausea . 4. . 5. Anxiety. 6. Depression . PLAN: We will admit to telemetry bed. Consider pulmonary consult. Continue . Continue IV steroid 40 mg q.12 h. IV antibiotic. Bronchodilator treatment. Repeat labs for high potassium. Consider GI consult to rule out peptic ulcer disease. He shall probably need an EGD and colonoscopy son. Discussed with Dr. Lopez for Pulmonary consult, Dr. Barron for GI consult, and consider also pain management consult. Thomas Farmer M.D. DR: Davis JOB#: [id number] CC:
[2017-10-14] VITALS: BP 112/65
[2017-10-14] MEDS: cefTRIAXone 1 GM in D5W 55 ML IVPB SCH (00:34)
[2017-10-14] MEDS: Morphine Sulfate 2mg/ml Inj(IV/IM USE ONLY) IVP PRN ×3 (00:35→15:52)
[2017-10-14] MEDS: Albuterol/Ipratropium 3ml neb HHN SCH ×4 (01:00→20:49)
[2017-10-14 04:00] VITALS: BP 122/76
--- NOTE | 2017-10-14 07:11 | Pulmonology Progress Note ---
Assessment/Plan Assessment/Plan ASSESSMENT COPD exacerbation pleuritic chest pain emphysema current smoker Nicotine dependency with withdrawal Abdominal/epigastric pain hypertension chronic anticoagulation FELICIA vs chronic renal insufficiency hyperkalemia PLAN OF CARE Med Surg floor supplemental oxygen, titrate prn pulmonary toilet IV steroids antitussive prn empiric abx trial of theophylline sputum culture negative f/u with CXR initial CXR- no acute C/P pathology but with changes c/w COPD/emphysema counseled on smoking cessation started on nicotine patch BP management with calcium channel breonna, hold PAUL inhibitor due to renal insufficiency and hyperkalemia monitor renal parameters, electrolytes, avoid nephrotoxic pt was on PAUL, dc , possible FELICIA correct electrolytes as needed GI follows CT abdomen and abdominal ultrasound noted no acute intra-abdominal pathology, LFT, lipase, bili all within normal limits pain management per GI consider endoscopy if patient continues to have persistent epigastric pain( will need to stop Coumadin 48 hrs prior to procedure). advance diet as tolerated probiotics ppi simethicone prn GI prophylaxis bowel regimen supportive care DNR/DNI status case discussed and evaluated by supervising physician Subjective Allergies: Coded Allergies: LORAZEPAM (Verified Allergy, Unknown, 10/12/17) Subjective still with significant cough, congestion, wheezing chest pain with deep breath and when coughing, no radiation, no palpitations, no dizziness no abd pain today , tolerated diet Objective Last 24 Hour Vital Signs Date Time Temp Pulse Resp B/P (MAP) Pulse Ox O2 Delivery O2 Flow Rate FiO2 10/14/17 04:00 97.7 79 20 122/76 (91) 93 97.7 10/14/17 03:42 71 10/14/17 00:45 Nasal Cannula 10/14/17 00:45 Nasal Cannula 2.0 10/14/17 00:00 98.3 91 20 112/65 (81) 93 98.3 10/13/17 23:48 85 10/13/17 21:00 Nasal Cannula 2.0 10/13/17 20:00 98.4 90 20 103/61 (75) 97 98.4 10/13/17 19:52 94 18 96 Nasal Cannula 2.0 10/13/17 19:52 81 18 Nasal Cannula 2.0 10/13/17 19:52 88 22 95 Nasal Cannula 2.0 10/13/17 19:51 Nasal Cannula 2.0 10/13/17 19:51 96 Nasal Cannula 2.0 28 10/13/17 19:03 86 10/13/17 16:00 98 10/13/17 16:00 98.9 93 22 113/68 (83) 94 98.9 10/13/17 13:15 96 18 97 Nasal Cannula 2.0 28 10/13/17 13:05 99 22 92 Nasal Cannula 2.0 28 10/13/17 12:00 87 10/13/17 12:00 98.9 88 20 127/83 (98) 92 98.9 10/13/17 09:00 Nasal Cannula 2.0 10/13/17 09:00 107/66 10/13/17 09:00 87 107/66 10/13/17 08:00 98.1 87 20 107/66 (80) 91 98.1 10/13/17 08:00 87 Intake and Output 10/13/17 10/14/17 19:00 07:00 Intake Total 655 ml Output Total 1400 ml 200 ml Balance -1400 ml 455 ml Intake Oral 600 ml IV Total 55 ml Output Urine Total 1400 ml 200 ml General Appearance: no acute distress, other - A/A/O x 3 male HEENT: normocephalic, atraumatic, anicteric, mucous membranes moist Respiratory/Chest: decreased breath sounds, expiratory wheezing Cardiovascular: normal peripheral pulses, normal rate, regular rhythm - SR on tele Abdomen: normal bowel sounds, soft, non tender Extremities: no edema, pedal pulses normal Neurologic/Psychiatric: no motor/sensory deficits, alert, responsive Musculoskeletal: normal muscle bulk Microbiology Date/Time Source Procedure Growth Status 10/13/17 12:50 Sputum Gram Stain - Final Resulted 10/13/17 12:50 Sputum Sputum Culture Pending Resulted 10/12/17 19:00 Nasal Nares MRSA Culture - Final NO METHICILLIN RESISTANT STAPH AUREUS... Complete 10/12/17 19:00 Rectum VRE Culture Pending Resulted 10/12/17 19:00 Rectum - Preliminary Resulted Laboratory Tests 10/13/17 09:00: Prothrombin Time 13.4H, Prothromb Time International Ratio 1.3H Current Medications Medications (Trade) Dose Ordered Sig/Simone Route PRN Reason Start Time Stop Time Status Last Admin Dose Admin Acetaminophen (Tylenol) 650 mg Q6H PRN ORAL Mild Pain/Temp > 100.5 10/13/17 00:15 11/12/17 00:14 Acetaminophen/ Hydrocodone Bitart ([place] 10/325) 1 tab Q8HR PRN ORAL Moderate Pain (Pain Scale 4-6) 10/12/17 23:45 10/19/17 23:44 10/13/17 20:48 Acetaminophen/ Hydrocodone Bitart ([place] 5/325) 1 tab BID ORAL 10/13/17 09:00 10/20/17 08:59 10/13/17 17:52 Albuterol/ Ipratropium (Albuterol/ Ipratropium) 3 ml Q4H PRN HHN Shortness of Breath 10/13/17 16:15 10/17/17 23:44 Albuterol/ Ipratropium (Albuterol/ Ipratropium) 3 ml Q6HRT HHN 10/13/17 13:00 10/18/17 12:59 10/13/17 19:46 Amlodipine Besylate (Norvasc) 5 mg DAILY ORAL 10/13/17 09:00 11/12/17 08:59 Barium Sulfate (Readi-Cat 2) 450 ml NOW PRN ORAL Radiology Procedure 10/12/17 16:45 10/14/17 16:45 Ceftriaxone Sodium 1 gm/ Dextrose 55 ml @ 110 mls/hr Q24H IVPB 10/13/17 00:00 10/20/17 00:00 10/14/17 00:34 Clonazepam (KlonoPIN) 0.5 mg BID ORAL 10/13/17 18:00 10/20/17 17:59 10/13/17 17:51 Cyclobenzaprine HCl (Flexeril) 10 mg Q12HR PRN ORAL Muscle Spasm 10/13/17 00:15 11/12/17 00:14 Docusate Sodium (Colace) 100 mg DAILY PRN ORAL Constipation 10/12/17 23:45 11/11/17 23:44 Docusate Sodium (Colace) 100 mg THREE TIMES A DAY ORAL 10/13/17 18:00 11/12/17 17:59 10/13/17 17:51 Furosemide (Lasix) 20 mg BID ORAL 10/13/17 09:00 11/12/17 08:59 10/13/17 17:51 Gabapentin (Neurontin) 600 mg THREE TIMES A DAY ORAL 10/13/17 09:00 11/12/17 08:59 10/13/17 17:51 Iopamidol (Isovue-300 100ml) 100 ml NOW PRN INJ Radiology Procedure 10/12/17 16:45 Lactobacillus Acidophilus (Culturelle) 1 tab THREE TIMES A DAY ORAL 10/13/17 18:00 11/12/17 17:59 10/13/17 17:51 Methylprednisolone Sodium Succinate (Solu-MEDROL) 40 mg EVERY 12 HOURS IVP 10/13/17 09:00 11/12/17 08:59 10/13/17 20:47 Morphine Sulfate (Morphine Sulfate) 1 mg EVERY 6 HOURS PRN IVP Moderate Pain (Pain Scale 4-6) 10/12/17 23:45 10/19/17 23:44 10/14/17 06:03 Multivitamins Therapeutic (Therapeutic Multivitamin) 1 ea DAILY ORAL 10/13/17 09:00 11/12/17 08:59 10/13/17 09:01 Nicotine (Nicoderm) 1 patch DAILY TDERMAL 10/13/17 12:00 11/12/17 11:59 10/13/17 13:27 Pantoprazole (Protonix) 40 mg BEFORE BREAKFAST ORAL 10/13/17 06:30 11/12/17 06:29 10/14/17 06:02 Polyethylene Glycol (Miralax) 17 gm BEDTIME ORAL 10/13/17 21:00 11/12/17 20:59 10/13/17 20:47 Promethazine HCl/ Codeine (Phenergan with Codeine) 5 ml Q4H PRN ORAL For Cough 10/13/17 11:45 11/12/17 11:44 Simethicone (Mylicon) 80 mg QID PRN ORAL GAS PAIN 10/13/17 15:00 11/12/17 14:59 Theophylline (Kulwant-Dur) 100 mg EVERY 12 HOURS ORAL 10/13/17 21:00 11/12/17 20:59 10/13/17 20:47 Thiamine HCl (Vitamin B1) 100 mg DAILY ORAL 10/13/17 09:00 11/12/17 08:59 10/13/17 09:01 Tramadol HCl (Ultram) 50 mg Q6H PRN ORAL Moderate Pain (Pain Scale 4-6) 10/12/17 23:45 10/19/17 23:44 Warfarin Sodium (Coumadin per pharmacy) 1 ea DAILY PRN MISC Per RX Protocol 10/13/17 08:30 11/12/17 08:29 Warfarin Sodium (Coumadin) 5 mg COUMADIN ORAL 10/13/17 17:00 10/18/17 16:59 10/13/17 17:52 Sarah Jose NP Oct 14, 2017 07:11
[2017-10-14 08:00] VITALS: BP 118/64
[2017-10-14 08:04] LABS: BASOPHILS % (AUTO) 0.2 % (0.0-2.0); HEMATOCRIT 36.4 % (42.0-52.0); HEMOGLOBIN 12.2 G/DL (14.2-18.0); LYMPHOCYTES % (AUTO) 15.3 % (20.0-45.0); MEAN CORPUSCULAR VOLUME 93 FL (80-99); MONOCYTES % (AUTO) 5.5 % (1.0-10.0); NEUTROPHILS % (AUTO) 78.9 % (45.0-75.0); PLATELET COUNT 279 K/UL (150-450); RED BLOOD COUNT 3.91 M/UL (4.70-6.10); RED CELL DISTRIBUTION WIDTH 13.2 % (11.6-14.8); WHITE BLOOD COUNT 12.1 K/UL (4.8-10.8)
[2017-10-14 08:10] LABS: INR 1.1 (0.9-1.1)
[2017-10-14 08:41] LABS: ALANINE AMINOTRANSFERASE 25 U/L (12-78); ALBUMIN 3.2 G/DL (3.4-5.0); ALBUMIN/GLOBULIN RATIO 0.8 (1.0-2.7); ALKALINE PHOSPHATASE 86 U/L (46-116); ANION GAP 7 mmol/L (5-15); ASPARTATE AMINO TRANSFERASE 24 U/L (15-37); BILIRUBIN,TOTAL 0.2 MG/DL (0.2-1.0); BLOOD UREA NITROGEN 36 mg/dL (7-18); CALCIUM 8.9 MG/DL (8.5-10.1); CARBON DIOXIDE 29 MMOL/L (21-32); CHLORIDE 98 MMOL/L (98-107); CREATININE 1.5 MG/DL (0.55-1.30); PHOSPHORUS 3.4 MG/DL (2.5-4.9); SODIUM 134 MMOL/L (136-145)
[2017-10-14] MEDS: Docusate 100mg cap ORAL SCH ×3 (08:45→17:30)
[2017-10-14] MEDS: Lactobacillus-GG tablet ORAL SCH ×3 (08:45→17:30)
[2017-10-14] MEDS: Solu-MEDROL 40mg Inj IVP SCH ×2 (08:45→22:05)
[2017-10-14] MEDS: Theophylline ER 100mg ORAL SCH ×2 (08:45→22:13)
[2017-10-14] MEDS: clonazePAM 0.5mg tab ORAL SCH ×2 (08:46→17:30)
[2017-10-14] MEDS: Thiamine 100mg tab ORAL SCH (08:46)
[2017-10-14] MEDS: Multivitamin w/Minerals tab ORAL SCH (08:46)
[2017-10-14] MEDS: Norco 5mg/325mg tab ORAL SCH ×2 (08:47→17:35)
[2017-10-14 12:00] VITALS: BP 118/76
[2017-10-14] MEDS ORDERED: Promethazine/Codeine 5ml UD ORAL PRN (12:45)
[2017-10-14] MEDS ORDERED: traMADol 50mg tab ORAL PRN (12:45)
[2017-10-14] MEDS ORDERED: Albuterol/Ipratropium 3ml neb HHN PRN (12:45)
[2017-10-14] MEDS ORDERED: Docusate 100mg cap ORAL PRN (12:45)
[2017-10-14] MEDS ORDERED: Simethicone 80mg tab ORAL PRN (13:00)
[2017-10-14] MEDS: HYDROcodone/Acetamin 10/325 tab ORAL PRN ×2 (13:32→22:13)
[2017-10-14] MEDS ORDERED: Solu-MEDROL 125mg Inj IVP SCH ×2 (14:00)
--- NOTE | 2017-10-14 15:39 | General Progress Note ---
Assessment/Plan Assessment/Plan Assessment - Bloating - Burning Epigastric pain - COPD exhacerbation - Umbilical hernia - h/o DVT, IVC filter - mild azotemia Recommendations - hold coumadin - Lovenox bridge - EGD Monday -OOB - Simethicone PRN Subjective Allergies: Coded Allergies: LORAZEPAM (Verified Allergy, Unknown, 10/12/17) Subjective c/o burning abd pain tolerating PO c/o umbilical hernia for EGD Monday Declines colonoscopy Objective Last 24 Hour Vital Signs Date Time Temp Pulse Resp B/P (MAP) Pulse Ox O2 Delivery O2 Flow Rate FiO2 10/14/17 14:31 98.1 10/14/17 14:21 101 18 98 Nasal Cannula 2.0 10/14/17 14:09 99 20 96 Nasal Cannula 2.0 10/14/17 13:32 98.1 10/14/17 12:00 98.1 97 18 118/76 (90) 93 98.1 10/14/17 10:18 100 18 98 Nasal Cannula 2.0 10/14/17 10:08 102 20 95 Nasal Cannula 2.0 10/14/17 10:08 95 Nasal Cannula 2.0 10/14/17 10:08 Nasal Cannula 2.0 10/14/17 09:00 Nasal Cannula 2.0 10/14/17 08:46 98 118/64 10/14/17 08:00 99.0 98 20 118/64 (82) 93 99.0 10/14/17 08:00 97 10/14/17 04:00 97.7 79 20 122/76 (91) 93 97.7 10/14/17 03:42 71 10/14/17 00:45 Nasal Cannula 10/14/17 00:45 Nasal Cannula 2.0 28 10/14/17 00:00 98.3 91 20 112/65 (81) 93 98.3 10/13/17 23:48 85 10/13/17 21:00 Nasal Cannula 2.0 10/13/17 20:00 98.4 90 20 103/61 (75) 97 98.4 10/13/17 19:52 94 18 96 Nasal Cannula 2.0 10/13/17 19:52 81 18 Nasal Cannula 2.0 10/13/17 19:52 88 22 95 Nasal Cannula 2.0 28 10/13/17 19:51 Nasal Cannula 2.0 10/13/17 19:51 96 Nasal Cannula 2.0 10/13/17 19:03 86 10/13/17 16:00 98 10/13/17 16:00 98.9 93 22 113/68 (83) 94 98.9 Intake and Output 10/13/17 10/14/17 19:00 07:00 Intake Total 655 ml Output Total 1400 ml 200 ml Balance -1400 ml 455 ml Intake Oral 600 ml IV Total 55 ml Output Urine Total 1400 ml 200 ml Laboratory Tests 10/14/17 07:25: White Blood Count 12.1H, Red Blood Count 3.91L, Hemoglobin 12.2L, Hematocrit 36.4L, Mean Corpuscular Volume 93, Mean Corpuscular Hemoglobin 31.3H, Mean Corpuscular Hemoglobin Concent 33.6, Red Cell Distribution Width 13.2, Platelet Count 279, Mean Platelet Volume 7.2, Neutrophils (%) (Auto) 78.9H, Lymphocytes ( %) (Auto) 15.3L, Monocytes (%) (Auto) 5.5, Eosinophils (%) (Auto) 0.0, Basophils (%) (Auto) 0.2, Prothrombin Time 11.7H, Prothromb Time International Ratio 1.1, Sodium Level 134L, Potassium Level 5.0, Chloride Level 98, Carbon Dioxide Level 29, Anion Gap 7, Blood Urea Nitrogen 36H, Creatinine 1.5H, Estimat Glomerular Filtration Rate 46.3, Glucose Level 165H, Calcium Level 8.9, Phosphorus Level 3.4, Magnesium Level 2.0, Total Bilirubin 0.2, Aspartate Amino Transf (AST/SGOT) 24, Alanine Aminotransferase (ALT/SGPT) 25, Alkaline Phosphatase 86, Total Protein 7.2, Albumin 3.2L, Globulin 4.0, Albumin/Globulin Ratio 0.8L Height (Feet): 5 Height (Inches): 8.00 Weight (Pounds): 160 Objective WDWN WM NCAT supple CTA RRR Soft ND NT, mild umbilical hernia no edema nonfocal Jraed Malhotra MD Oct 14, 2017 15:39
[2017-10-14 16:00] VITALS: BP 131/72
[2017-10-14] MEDS ORDERED: Warfarin Sodium 5mg ORAL SCH (17:00)
[2017-10-14 20:00] VITALS: BP 117/68
[2017-10-14] MEDS ORDERED: Miralax 17gm pkt ORAL SCH (21:00)
--- NOTE | 2017-10-14 21:45 | Progress Note ---
DATE: 10/14/2017 SUBJECTIVE: The patient complaining still sciatica pain on the left leg from neck. His short of breath is improving. OBJECTIVE: VITAL SIGNS: Blood pressure is 149/70, pulse 60, respirations 18, no fever. HEENT: NAD. CHEST: Bilateral few crackles and wheezing. CARDIOVASCULAR: Regular rhythm. ABDOMEN: Soft. EXTREMITIES: CCE. NEUROLOGICAL: Generalized weakness. ASSESSMENT: 1. Acute COPD. 2. Intractable pain. 3. Sciatica. 4. Gastroesophageal reflux disease. PLAN: The patient is going to go for a GI workup on Monday. Cut down on steroid. Continue bronchodilator treatment, up the Neurontin. Thomas Farmer M.D. DR: LUCY JOB#: [id number] CC:
[2017-10-14] MEDS: Enoxaparin 60mg Inj SUBQ SCH (22:06)
[2017-10-15] VITALS: BP 116/77
[2017-10-15] MEDS: cefTRIAXone 1 GM in D5W 55 ML IVPB SCH (00:49)
[2017-10-15] MEDS: Albuterol/Ipratropium 3ml neb HHN SCH ×4 (01:00→20:21)
[2017-10-15] MEDS: Morphine Sulfate 2mg/ml Inj(IV/IM USE ONLY) IVP PRN ×3 (03:15→22:01)
[2017-10-15 04:00] VITALS: BP 112/69
[2017-10-15 06:38] LABS: INR 1.1 (0.9-1.1)
[2017-10-15 08:22] VITALS: BP 129/75
[2017-10-15] MEDS: Docusate 100mg cap ORAL SCH ×3 (08:25→17:21)
[2017-10-15] MEDS: clonazePAM 0.5mg tab ORAL SCH ×2 (08:26→17:22)
[2017-10-15] MEDS: Multivitamin w/Minerals tab ORAL SCH (08:26)
[2017-10-15] MEDS: Lactobacillus-GG tablet ORAL SCH ×3 (08:26→17:21)
[2017-10-15] MEDS: Theophylline ER 100mg ORAL SCH ×2 (08:27→20:33)
[2017-10-15] MEDS: Norco 5mg/325mg tab ORAL SCH ×3 (08:28→17:22)
[2017-10-15] MEDS: Solu-MEDROL 40mg Inj IVP SCH ×2 (08:29→20:33)
[2017-10-15] MEDS: Cyclobenzaprine 10mg Tab ORAL PRN ×2 (08:30→20:33)
[2017-10-15] MEDS: Enoxaparin 60mg Inj SUBQ SCH (08:30)
[2017-10-15] MEDS: Thiamine 100mg tab ORAL SCH (08:32)
[2017-10-15] MEDS: HYDROcodone/Acetamin 10/325 tab ORAL PRN ×2 (08:43→20:32)
--- NOTE | 2017-10-15 09:03 | Pulmonology Progress Note ---
Assessment/Plan Assessment/Plan ASSESSMENT COPD exacerbation pleuritic chest pain emphysema current smoker nicotine dependency with withdrawal Abdominal/epigastric pain hypertension chronic anticoagulation FELICIA vs chronic renal insufficiency hyperkalemia PLAN OF CARE Med Surg floor supplemental oxygen, titrate prn pulmonary toilet with HHN, pt declined CPT IV steroids, taper antitussive prn empiric abx trial of theophylline sputum culture negative f/u with CXR initial CXR- no acute C/P pathology but with changes c/w COPD/emphysema counseled on smoking cessation started on nicotine patch BP management with calcium channel breonna, hold PAUL inhibitor due to renal insufficiency and hyperkalemia monitor renal parameters, electrolytes, avoid nephrotoxic pt was on PAUL, dc , possible FELICIA correct electrolytes as needed GI follows CT abdomen and abdominal ultrasound noted no acute intra-abdominal pathology, LFT, lipase, bili all within normal limits pain management per GI consider endoscopy if patient continues to have persistent epigastric pain( will need to stop Coumadin 48 hrs prior to procedure). advance diet as tolerated probiotics ppi simethicone prn GI prophylaxis bowel regimen supportive care DNR/DNI status case discussed and evaluated by supervising physician Subjective Allergies: Coded Allergies: LORAZEPAM (Verified Allergy, Unknown, 10/12/17) Subjective still with significant cough, congestion, wheezing chest pain with deep breath and when coughing, no radiation, no palpitations, no dizziness no abd pain today , tolerated diet Objective Last 24 Hour Vital Signs Date Time Temp Pulse Resp B/P (MAP) Pulse Ox O2 Delivery O2 Flow Rate FiO2 10/15/17 08:53 78 20 98 Nasal Cannula 2.0 10/15/17 08:43 64 22 92 Nasal Cannula 2.0 10/15/17 08:43 98.0 10/15/17 08:43 Nasal Cannula 2.0 28 10/15/17 08:43 92 Nasal Cannula 2.0 10/15/17 08:30 98.0 10/15/17 08:27 77 129/75 10/15/17 08:22 98.0 77 18 129/75 (93) 98 98.0 10/15/17 04:00 97.8 89 18 112/69 (83) 95 97.8 10/15/17 01:00 Nasal Cannula 2.0 28 10/15/17 01:00 Nasal Cannula 2.0 28 10/15/17 00:00 98.1 94 19 116/77 (90) 95 98.1 10/14/17 21:05 98 18 99 Nasal Cannula 2.0 28 10/14/17 21:00 Nasal Cannula 2.0 10/14/17 20:50 Nasal Cannula 2.0 28 10/14/17 20:50 96 Nasal Cannula 2.0 28 10/14/17 20:49 94 18 96 Nasal Cannula 2.0 28 10/14/17 20:00 97.9 100 18 117/68 (84) 94 97.9 10/14/17 16:22 98.3 10/14/17 16:00 98.3 86 20 131/72 (91) 96 98.3 10/14/17 15:52 98.1 10/14/17 14:31 98.1 10/14/17 14:21 101 18 98 Nasal Cannula 2.0 10/14/17 14:09 99 20 96 Nasal Cannula 2.0 28 10/14/17 13:32 98.1 10/14/17 12:00 98.1 97 18 118/76 (90) 93 98.1 10/14/17 10:18 100 18 98 Nasal Cannula 2.0 28 10/14/17 10:08 102 20 95 Nasal Cannula 2.0 28 10/14/17 10:08 95 Nasal Cannula 2.0 10/14/17 10:08 Nasal Cannula 2.0 28 Intake and Output 10/14/17 10/15/17 19:00 07:00 Intake Total 740 ml 855 ml Output Total 1100 ml 1075 ml Balance -360 ml -220 ml Intake Oral 740 ml 800 ml IV Total 55 ml Output Urine Total 1100 ml 1075 ml # Voids 2 3 Objective General Appearance: no acute distress, other - A/A/O x 3 male HEENT: normocephalic, atraumatic, anicteric, mucous membranes moist Respiratory/Chest: decreased breath sounds, expiratory wheezing Cardiovascular: normal peripheral pulses, normal rate, Abdomen: normal bowel sounds, soft, non tender Extremities: no edema, pedal pulses normal Neurologic/Psychiatric: no motor/sensory deficits, alert, responsive Musculoskeletal: normal muscle bulk Microbiology Date/Time Source Procedure Growth Status 10/13/17 12:50 Sputum Gram Stain - Final Resulted 10/13/17 12:50 Sputum Culture - Preliminary Gram Negative Bacillus 1 Usual Respiratory Linda Resulted 10/12/17 19:00 Nasal Nares MRSA Culture - Final NO METHICILLIN RESISTANT STAPH AUREUS... Complete 10/12/17 19:00 Rectum VRE Culture - Final NO VANCOMYCIN RESISTANT ENTEROCOCCUS ... Complete 10/12/17 19:00 Rectum - Final NO CARBAPENEM-RESISTANT ENTEROBACTERI... Complete Laboratory Tests 10/15/17 05:20: Prothrombin Time 11.8H, Prothromb Time International Ratio 1.1 Current Medications Medications (Trade) Dose Ordered Sig/Simone Route PRN Reason Start Time Stop Time Status Last Admin Dose Admin Acetaminophen (Tylenol) 650 mg Q6H PRN ORAL Mild Pain/Temp > 100.5 10/14/17 12:45 11/12/17 12:44 Acetaminophen/ Hydrocodone Bitart ([place] 10/325) 1 tab Q8H PRN ORAL Severe Pain (Pain Scale 7-10) 10/14/17 13:30 10/21/17 13:29 10/15/17 08:43 Acetaminophen/ Hydrocodone Bitart ([place] 5/325) 1 tab BID ORAL 10/14/17 18:00 10/20/17 08:59 Albuterol/ Ipratropium (Albuterol/ Ipratropium) 3 ml Q4H PRN HHN Shortness of Breath 10/14/17 12:45 10/17/17 12:44 Albuterol/ Ipratropium (Albuterol/ Ipratropium) 3 ml Q6HRT HHN 10/14/17 13:00 10/18/17 12:59 10/15/17 08:43 Amlodipine Besylate (Norvasc) 5 mg DAILY ORAL 10/15/17 09:00 11/12/17 08:59 10/15/17 08:27 Ceftriaxone Sodium 1 gm/ Dextrose 55 ml @ 110 mls/hr Q24H IVPB 10/15/17 00:00 10/20/17 00:00 10/15/17 00:49 Clonazepam (KlonoPIN) 0.5 mg BID ORAL 10/14/17 18:00 10/20/17 17:59 10/15/17 08:26 Cyclobenzaprine HCl (Flexeril) 10 mg Q12H PRN ORAL Muscle Spasm 10/14/17 12:45 11/13/17 12:44 10/15/17 08:30 Docusate Sodium (Colace) 100 mg DAILYPRN PRN ORAL Constipation 10/14/17 12:45 11/13/17 12:44 Docusate Sodium (Colace) 100 mg THREE TIMES A DAY ORAL 10/14/17 13:00 11/12/17 17:59 10/15/17 08:25 Enoxaparin Sodium (Lovenox) 60 mg EVERY 12 HOURS SUBQ 10/14/17 21:00 10/15/17 14:00 10/15/17 08:30 Furosemide (Lasix) 20 mg BID ORAL 10/14/17 18:00 11/12/17 08:59 10/15/17 08:26 Gabapentin (Neurontin) 600 mg THREE TIMES A DAY ORAL 10/14/17 13:00 11/12/17 08:59 10/15/17 08:26 Lactobacillus Acidophilus (Culturelle) 1 tab THREE TIMES A DAY ORAL 10/14/17 13:00 11/12/17 17:59 10/15/17 08:26 Methylprednisolone Sodium Succinate (Solu-MEDROL) 20 mg EVERY 12 HOURS IVP 10/14/17 21:00 11/13/17 20:59 10/15/17 08:29 Morphine Sulfate (Morphine Sulfate) 1 mg Q6H PRN IVP Moderate Breakthru Pain (5-7) 10/14/17 13:30 10/21/17 13:29 10/15/17 03:15 Multivitamins Therapeutic (Therapeutic Multivitamin) 1 ea DAILY ORAL 10/15/17 09:00 11/12/17 08:59 10/15/17 08:26 Nicotine (Nicoderm) 1 patch DAILY TDERMAL 10/15/17 09:00 11/12/17 11:59 10/15/17 08:31 Pantoprazole (Protonix) 40 mg BEFORE BREAKFAST ORAL 10/15/17 06:30 11/12/17 06:29 10/15/17 06:04 Polyethylene Glycol (Miralax) 17 gm BEDTIME ORAL 10/14/17 21:00 11/12/17 20:59 10/14/17 22:05 Promethazine HCl/ Codeine (Phenergan with Codeine) 5 ml Q4H PRN ORAL For Cough 10/14/17 12:45 11/12/17 12:44 Simethicone (Mylicon) 80 mg QIDPRN PRN ORAL GAS PAIN 10/14/17 13:00 11/13/17 12:59 10/15/17 08:30 Theophylline (Kulwant-Dur) 100 mg EVERY 12 HOURS ORAL 10/14/17 21:00 11/12/17 20:59 10/15/17 08:27 Thiamine HCl (Vitamin B1) 100 mg DAILY ORAL 10/15/17 09:00 11/12/17 08:59 10/15/17 08:32 Tramadol HCl (Ultram) 50 mg Q6H PRN ORAL Moderate Pain (Pain Scale 4-6) 10/14/17 12:45 10/19/17 12:44 Sarah Jose NP Oct 15, 2017 09:03
[2017-10-15 09:12] LABS: HEMATOCRIT 36.3 % (42.0-52.0); HEMOGLOBIN 11.9 G/DL (14.2-18.0); MEAN CORPUSCULAR VOLUME 94 FL (80-99); PLATELET COUNT 284 K/UL (150-450); RED BLOOD COUNT 3.88 M/UL (4.70-6.10); RED CELL DISTRIBUTION WIDTH 13.4 % (11.6-14.8); WHITE BLOOD COUNT 14.3 K/UL (4.8-10.8)
[2017-10-15] MEDS ORDERED: Miralax 17gm pkt ORAL SCH (11:40)
[2017-10-15] MEDS ORDERED: Miralax 17gm pkt ORAL PRN ×3 (11:45→12:43)
[2017-10-15 12:20] VITALS: BP 130/78
[2017-10-15 16:00] VITALS: BP 114/71
--- NOTE | 2017-10-15 16:44 | General Progress Note ---
Assessment/Plan Assessment/Plan Assessment - Bloating - Burning Epigastric pain - COPD exhacerbation - Umbilical hernia - h/o DVT, IVC filter - mild azotemia Recommendations - hold coumadin - Lovenox bridge - EGD Monday -OOB - Simethicone PRN Subjective Allergies: Coded Allergies: LORAZEPAM (Verified Allergy, Unknown, 10/12/17) Subjective c/o burning abd pain tolerating PO for EGD Monday Objective Last 24 Hour Vital Signs Date Time Temp Pulse Resp B/P (MAP) Pulse Ox O2 Delivery O2 Flow Rate FiO2 10/15/17 16:00 97.4 99 18 114/71 (85) 96 97.4 10/15/17 14:28 97.9 10/15/17 13:53 97.9 10/15/17 13:30 96 20 98 Nasal Cannula 2.0 10/15/17 13:21 100 22 92 Nasal Cannula 2.0 10/15/17 12:20 97.9 88 18 130/78 (95) 96 97.9 10/15/17 09:29 98.0 10/15/17 09:29 98.0 10/15/17 08:53 78 20 98 Nasal Cannula 2.0 10/15/17 08:43 64 22 92 Nasal Cannula 2.0 10/15/17 08:43 98.0 10/15/17 08:43 Nasal Cannula 2.0 10/15/17 08:43 92 Nasal Cannula 2.0 10/15/17 08:30 98.0 10/15/17 08:27 77 129/75 10/15/17 08:22 98.0 77 18 129/75 (93) 98 98.0 10/15/17 08:10 Nasal Cannula 2.0 10/15/17 04:00 97.8 89 18 112/69 (83) 95 97.8 10/15/17 01:00 Nasal Cannula 2.0 10/15/17 01:00 Nasal Cannula 2.0 10/15/17 00:00 98.1 94 19 116/77 (90) 95 98.1 10/14/17 21:05 98 18 99 Nasal Cannula 2.0 10/14/17 21:00 Nasal Cannula 2.0 10/14/17 20:50 Nasal Cannula 2.0 10/14/17 20:50 96 Nasal Cannula 2.0 10/14/17 20:49 94 18 96 Nasal Cannula 2.0 28 10/14/17 20:00 97.9 100 18 117/68 (84) 94 97.9 Intake and Output 10/14/17 10/15/17 19:00 07:00 Intake Total 740 ml 855 ml Output Total 1100 ml 1075 ml Balance -360 ml -220 ml Intake Oral 740 ml 800 ml IV Total 55 ml Output Urine Total 1100 ml 1075 ml # Voids 2 3 Laboratory Tests 10/15/17 05:20: White Blood Count 14.3H, Red Blood Count 3.88L, Hemoglobin 11.9L, Hematocrit 36.3L, Mean Corpuscular Volume 94, Mean Corpuscular Hemoglobin 30.7, Mean Corpuscular Hemoglobin Concent 32.8, Red Cell Distribution Width 13.4, Platelet Count 284, Mean Platelet Volume 7.0, Neutrophils (%) (Auto) , Lymphocytes (%) ( Auto) , Monocytes (%) (Auto) , Eosinophils (%) (Auto) , Basophils (%) (Auto) , Differential Total Cells Counted 100, Neutrophils % (Manual) 78H, Lymphocytes % (Manual) 13L, Monocytes % (Manual) 9, Eosinophils % (Manual) 0, Basophils % ( Manual) 0, Band Neutrophils 0, Platelet Estimate Adequate, Platelet Morphology Normal, Hypochromasia , Anisocytosis 1+, Prothrombin Time 11.8H, Prothromb Time International Ratio 1.1 Height (Feet): 5 Height (Inches): 8.00 Weight (Pounds): 160 Objective WDWN WM NCAT supple CTA RRR Soft ND NT, mild umbilical hernia no edema nonfocal Jared Malhotra MD Oct 15, 2017 16:44
[2017-10-15 19:44] VITALS: BP 112/58
[2017-10-16] VITALS (8 sets, daily range): BP systolic 109–138; BP diastolic 69–86
[2017-10-16] MEDS: Albuterol/Ipratropium 3ml neb HHN SCH ×4 (01:00→19:30)
[2017-10-16] MEDS: cefTRIAXone 1 GM in D5W 55 ML IVPB SCH ×2 (01:19→23:11)
[2017-10-16] MEDS ORDERED: DiphenhydrAMINE 50mg/ml Inj IVP PRN (07:00)
[2017-10-16] MEDS ORDERED: fentaNYL 100 mcg/2 mL IV PRN (07:00)
[2017-10-16] MEDS ORDERED: Labetalol 5mg/ml 20ml vial IV PRN (07:00)
[2017-10-16] MEDS ORDERED: Atropine Inj 1mg/10ml Syr IV PRN (07:00)
--- NOTE | 2017-10-16 07:02 | Anethesia Preoperative Eval ---
Anesthesia Pre-op PMH/ROS General Date of Evaluation: Oct 16, 2017 Time of Evaluation: 06:51 Anesthesiologist: sade ASA Score: ASA 3 Mallampati Score Class I : Soft palate, uvula, fauces, pillars visible Class II: Soft palate, uvula, fauces visible Class III: Soft palate, base of uvula visible Class IV: Only hard plate visible Mallampati Classification: Class II Surgeon: raúl Diagnosis: abdominal pain Surgical Procedure: egd Anesthesia History: none Family History: no anesthesia problems Allergies: Coded Allergies: LORAZEPAM (Verified Allergy, Unknown, 10/12/17) Medications: see eMAR Past Medical History Cardiovascular: Reports: HTN Pulmonary: Reports: COPD Gastrointestinal/Genitourinary: Reports: other - epigastric pain, biliary colic Hematology/Immune: Reports: other - chronic anticoagulation Anesthesia Pre-op Phys. Exam Physician Exam Last Vital Signs Date Time Temp Pulse Resp B/P (MAP) Pulse Ox O2 Delivery O2 Flow Rate FiO2 10/16/17 04:00 18 10/16/17 01:09 Nasal Cannula 2.0 28 10/16/17 00:19 97.5 75 109/69 (82) 96 97.5 Constitutional: NAD Neurologic: CN 2-12 intact Cardiovascular: RRR Respiratory: CTA Gastrointestinal: S/NT/ND Airway Exam Mallampati Score: Class II MO: limited Neck: supple TMD: 2fb ROM: limited Anesthesia Pre-op A/P Studies Pre-op Studies: EKG - nsr Risk Assessment & Plan Assessment: asa3 Plan: mac Status Change Before Surgery: No Pre-Antibiotics Drug: Carole Chapman MD Oct 16, 2017 07:02
[2017-10-16 07:47] LABS: HEMATOCRIT 37.2 % (42.0-52.0); HEMOGLOBIN 11.9 G/DL (14.2-18.0); LYMPHOCYTES % (AUTO) 17.8 % (20.0-45.0); MEAN CORPUSCULAR VOLUME 95 FL (80-99); MONOCYTES % (AUTO) 6.8 % (1.0-10.0); NEUTROPHILS % (AUTO) 74.4 % (45.0-75.0); PLATELET COUNT 193 K/UL (150-450); RED BLOOD COUNT 3.93 M/UL (4.70-6.10); RED CELL DISTRIBUTION WIDTH 13.5 % (11.6-14.8); WHITE BLOOD COUNT 12.1 K/UL (4.8-10.8)
[2017-10-16] MEDS ORDERED: Propofol 200mg/20ml IV ONE (08:00)
[2017-10-16] MEDS ORDERED: NS 500ML IVPB ONE (08:00)
[2017-10-16] MEDS ORDERED: Lidocaine 1% MPF 10mg/ml 5ml ONE (08:00)
--- NOTE | 2017-10-16 08:08 | Pre-Procedure Note/Attestation ---
Pre-Procedure Note/Attestation Complete Prior to Procedure Planned Procedure: not applicable Procedure Narrative: egd Indications for Procedure Pre-Operative Diagnosis: abd pain Attestation I attest that I discussed the nature of the procedure; its benefits; risks and complications; and alternatives (and the risks and benefits of such alternatives ), prior to the procedure, with the patient (or the patient's legal order entry representative). I attest that, if there was a reasonable possibility of needing a blood transfusion, the patient (or the patient's legal order entry representative) was given the [facility] standardized written summary, pursuant to the [place] Blood Safety Act ([place] Health and Safety Code # 1645, as amended). I attest that I re-evaluated the patient just prior to the surgery and that there has been no change in the patient's H&P, except as documented below: Jared Malhotra MD Oct 16, 2017 08:08
--- NOTE | 2017-10-16 08:10 | General Progress Note ---
Assessment/Plan Assessment/Plan Assessment - Bloating - Burning Epigastric pain - COPD exhacerbation - Umbilical hernia - h/o DVT, IVC filter - mild azotemia Recommendations - hold coumadin - Lovenox bridge - EGD today - restart anticoagulation after EGD -OOB - Simethicone PRN Subjective Allergies: Coded Allergies: LORAZEPAM (Verified Allergy, Unknown, 10/12/17) Subjective seen in GI lab no new complaints NPO for EGD Objective Last 24 Hour Vital Signs Date Time Temp Pulse Resp B/P (MAP) Pulse Ox O2 Delivery O2 Flow Rate FiO2 10/16/17 08:03 Nasal Cannula 2.0 28 10/16/17 08:02 Nasal Cannula 2.0 10/16/17 04:00 18 10/16/17 01:09 Nasal Cannula 2.0 10/16/17 01:09 Nasal Cannula 2.0 10/16/17 00:19 97.5 75 20 109/69 (82) 96 97.5 10/15/17 21:00 Nasal Cannula 2.0 10/15/17 19:44 98.1 95 20 112/58 (76) 95 98.1 10/15/17 19:29 98 22 99 Nasal Cannula 2.0 10/15/17 19:24 93 20 97 Nasal Cannula 2.0 10/15/17 19:24 97 Nasal Cannula 2.0 10/15/17 19:24 Nasal Cannula 2.0 10/15/17 18:21 97.4 10/15/17 17:22 97.4 10/15/17 16:00 97.4 99 18 114/71 (85) 96 97.4 10/15/17 14:28 97.9 10/15/17 13:53 97.9 10/15/17 13:30 96 20 98 Nasal Cannula 2.0 10/15/17 13:21 100 22 92 Nasal Cannula 2.0 10/15/17 12:20 97.9 88 18 130/78 (95) 96 97.9 10/15/17 09:29 98.0 10/15/17 09:29 98.0 10/15/17 08:53 78 20 98 Nasal Cannula 2.0 10/15/17 08:43 64 22 92 Nasal Cannula 2.0 10/15/17 08:43 98.0 10/15/17 08:43 Nasal Cannula 2.0 28 10/15/17 08:43 92 Nasal Cannula 2.0 28 10/15/17 08:30 98.0 10/15/17 08:27 77 129/75 10/15/17 08:22 98.0 77 18 129/75 (93) 98 98.0 10/15/17 08:10 Nasal Cannula 2.0 Intake and Output 10/15/17 10/16/17 19:00 07:00 Intake Total 960 ml 55 ml Output Total 1700 ml Balance -740 ml 55 ml Intake Oral 960 ml IV Total 55 ml Output Urine Total 1700 ml # Voids 3 Laboratory Tests 10/16/17 07:10: White Blood Count 12.1H, Red Blood Count 3.93L, Hemoglobin 11.9L, Hematocrit 37.2L, Mean Corpuscular Volume 95, Mean Corpuscular Hemoglobin 30.3, Mean Corpuscular Hemoglobin Concent 32.1, Red Cell Distribution Width 13.5, Platelet Count 193, Mean Platelet Volume 7.5, Neutrophils (%) (Auto) 74.4, Lymphocytes (% ) (Auto) 17.8L, Monocytes (%) (Auto) 6.8, Eosinophils (%) (Auto) 0.0, Basophils (%) (Auto) 1.0, Prothrombin Time 10.7, Prothromb Time International Ratio 1.0, Sodium Level [Pending], Potassium Level [Pending], Chloride Level [Pending], Carbon Dioxide Level [Pending], Blood Urea Nitrogen [Pending], Creatinine [ Pending], Estimat Glomerular Filtration Rate [Pending], Glucose Level [Pending] , Calcium Level [Pending] Height (Feet): 5 Height (Inches): 5.00 Weight (Pounds): 160 Objective WDWN WM NCAT supple CTA RRR Soft ND NT, mild umbilical hernia no edema nonfocal Jared Malhotra MD Oct 16, 2017 08:10
[2017-10-16 08:17] LABS: ANION GAP 6 mmol/L (5-15); BLOOD UREA NITROGEN 34 mg/dL (7-18); CALCIUM 8.8 MG/DL (8.5-10.1); CARBON DIOXIDE 29 MMOL/L (21-32); CHLORIDE 100 MMOL/L (98-107); CREATININE 1.2 MG/DL (0.55-1.30); POTASSIUM 4.4 MMOL/L (3.5-5.1); SODIUM 135 MMOL/L (136-145)
--- NOTE | 2017-10-16 08:32 | Endoscopy Procedure Note ---
Endoscopy Procedure Note General Indication for Procedure: abd pain Procedures Performed: EGD Operative Findings/Diagnosis: white duodenal mucosa Specimen: yes Pt Tolerated Procedure Well: Yes Estimated Blood Loss: none Anesthesia Anesthesiologist: mikayla almeida Anesthesia: moderate sedation Medications Medication Given: see anesthesia record Inserted Devices Implant(s) used?: No GI Core Measures 50 yrs or older w/o bx or poly: Not Applicable 10yrs. F/U not recommended: Not Applicable If not recommended, why?: Jared Malhotra MD Oct 16, 2017 08:32
--- NOTE | 2017-10-16 08:33 | Immediate Post-Op Evaluation ---
Immediate Post-Op Evalulation Immediate Post-Op Evalulation Procedure: egd w/bx Date of Evaluation: Oct 16, 2017 Time of Evaluation: 08:32 IV Fluids: 200ml lr Blood Products: none Estimated Blood Loss: negligible Blood Pressure Systolic: 120 Blood Pressure Diastolic: 86 Pulse Rate: 81 Respiratory Rate: 18 O2 Sat by Pulse Oximetry: 98 Temperature (Fahrenheit): 97.9 Pain Score (1-10): 0 Nausea: No Vomiting: No Complications none Patient Status: awake, reacts, patent Hydration Status: adequate Drug: Carole Chapman MD Oct 16, 2017 08:33
--- NOTE | 2017-10-16 08:33 | Brief Operative Note ---
Immediate Post Operative Note Operative Note Chief Complaint: abd pain Pre-op Diagnosis: abd pain Procedure: ed, bx duod and antrum Post-op Diagnosis: white duodenal mucosa Surgeon: raúl Anesthesiologist: roslyn almeida Anesthesia: MAC Specimen: yes Complications: none Condition: stable Fluids: recored Estimated Blood Loss: none Drains: none Implant(s) used?: No Jared Malhotra MD Oct 16, 2017 08:33
--- NOTE | 2017-10-16 08:34 | 48 Hour Post Anesthesia Eval ---
Post Anesthesia Evaluation Procedure: egd w/bx Date of Evaluation: Oct 16, 2017 Time of Evaluation: 08:34 Blood Pressure Systolic: 128 0: 86 Pulse Rate: 92 Respiratory Rate: 18 Temperature (Fahrenheit): 97.9 O2 Sat by Pulse Oximetry: 98 Airway: patent Nausea: No Vomiting: No Pain Intensity: 0 Hydration Status: adequate Cardiopulmonary Status: stable Mental Status/LOC: patient returned to baseline Post-Anesthesia Complications: none Follow-up care needed: N/A Carole Reyna MD Oct 16, 2017 08:34
[2017-10-16] MEDS: Solu-MEDROL 40mg Inj IVP SCH (09:40)
[2017-10-16] MEDS: clonazePAM 0.5mg tab ORAL SCH ×2 (09:40→18:01)
[2017-10-16] MEDS: Theophylline ER 100mg ORAL SCH ×2 (09:41→20:06)
[2017-10-16] MEDS: Lactobacillus-GG tablet ORAL SCH ×3 (09:41→18:02)
[2017-10-16] MEDS: Multivitamin w/Minerals tab ORAL SCH (09:42)
[2017-10-16] MEDS: Norco 5mg/325mg tab ORAL SCH ×2 (09:42→18:02)
[2017-10-16] MEDS: Thiamine 100mg tab ORAL SCH (09:43)
[2017-10-16] MEDS: Docusate 100mg cap ORAL SCH ×3 (09:44→18:01)
[2017-10-16] MEDS: Enoxaparin 60mg Inj SUBQ SCH ×2 (09:46→20:07)
[2017-10-16] MEDS: Cyclobenzaprine 10mg Tab ORAL PRN (09:51)
--- NOTE | 2017-10-16 11:15 | Procedure Note ---
DATE OF PROCEDURE: 10/16/2017 PROCEDURE: Upper gastrointestinal endoscopy with biopsy. SURGEON: Jared Malhotra M.D. ANESTHESIA: Please see the separate anesthesiologist notes for details. PRE-ENDOSCOPIC DIAGNOSIS: Abdominal pain. POST-ENDOSCOPIC DIAGNOSIS: White-colored duodenal mucosa of doubtful significance, status post biopsy. DESCRIPTION OF PROCEDURE: The procedure, its risks, indications, alternatives, and complications were explained and an informed consent was obtained. The patient was sedated and a diagnostic upper endoscope was introduced through the oropharynx and advanced to the duodenum. The endoscope was then gradually withdrawn and the mucosa examined carefully. Examination of the upper gastrointestinal mucosa revealed white-colored mucosa of the duodenum of doubtful significance. Biopsies of the duodenum and the antrum were sent to pathology for review. The endoscope was removed. The patient was sent to recovery in good condition. COMPLICATIONS: None. RECOMMENDATIONS: 1. Follow up biopsy results. 2. Resume oral diet. Thank you for asking me to participate in the care of this patient. Jared Malhotra M.D. DR: ALLAN JOB#: [id number] CC:
[2017-10-16] MEDS: HYDROcodone/Acetamin 10/325 tab ORAL PRN ×2 (13:21→23:12)
--- NOTE | 2017-10-16 15:35 | Pulmonology Progress Note ---
Assessment/Plan Problems: (1) COPD exacerbation (2) Chronic anticoagulation (3) Hypertension (4) Biliary colic Assessment/Plan SPUTUM CULTURE Preliminary Organism 1 PSEUDOMONAS AERUGINOSA Organism 2 MORAXELLA CATARRHALIS sputum sensitivity still pending taper steroids titrate fio2 chest PT incentive spirometry Subjective Interval Events: still short of breath, dry cough Allergies: Coded Allergies: LORAZEPAM (Verified Allergy, Unknown, 10/12/17) Objective Last 24 Hour Vital Signs Date Time Temp Pulse Resp B/P (MAP) Pulse Ox O2 Delivery O2 Flow Rate FiO2 10/16/17 12:55 Nasal Cannula 2.0 28 10/16/17 12:55 Nasal Cannula 2.0 28 10/16/17 12:00 97.7 68 20 138/86 (103) 100 97.7 10/16/17 09:42 81 137/86 10/16/17 09:00 Nasal Cannula 2.0 10/16/17 08:39 81 18 137/86 98 Nasal Cannula 3 10/16/17 08:34 208.2 92 18 98 10/16/17 08:33 208.2 81 18 98 10/16/17 08:30 78 18 128/86 98 Nasal Cannula 3 10/16/17 08:25 83 18 120/86 98 Nasal Cannula 3 10/16/17 08:20 97.9 81 18 120/86 98 Nasal Cannula 3 97.9 10/16/17 08:03 Nasal Cannula 2.0 10/16/17 08:02 Nasal Cannula 2.0 10/16/17 06:59 97 Nasal Cannula 2.0 10/16/17 06:59 Nasal Cannula 2.0 10/16/17 04:00 18 10/16/17 01:09 Nasal Cannula 2.0 10/16/17 01:09 Nasal Cannula 2.0 10/16/17 00:19 97.5 75 20 109/69 (82) 96 97.5 10/15/17 21:00 Nasal Cannula 2.0 10/15/17 19:44 98.1 95 20 112/58 (76) 95 98.1 10/15/17 19:29 98 22 99 Nasal Cannula 2.0 10/15/17 19:24 93 20 97 Nasal Cannula 2.0 10/15/17 19:24 97 Nasal Cannula 2.0 10/15/17 19:24 Nasal Cannula 2.0 28 10/15/17 18:21 97.4 10/15/17 17:22 97.4 10/15/17 16:00 97.4 99 18 114/71 (27) 96 97.4 Intake and Output 10/15/17 10/16/17 19:00 07:00 Intake Total 960 ml 55 ml Output Total 1700 ml Balance -740 ml 55 ml Intake Oral 960 ml IV Total 55 ml Output Urine Total 1700 ml # Voids 3 General Appearance: WD/WN HEENT: normocephalic, PERRL Respiratory/Chest: chest wall non-tender, accessory muscle use, crackles/rales Cardiovascular: normal rate, no JVD Abdomen: normal bowel sounds, soft, non tender Extremities: no clubbing Skin: no ulcers Neurologic/Psychiatric: no motor/sensory deficits Laboratory Tests 10/16/17 07:10: White Blood Count 12.1H, Red Blood Count 3.93L, Hemoglobin 11.9L, Hematocrit 37.2L, Mean Corpuscular Volume 95, Mean Corpuscular Hemoglobin 30.3, Mean Corpuscular Hemoglobin Concent 32.1, Red Cell Distribution Width 13.5, Platelet Count 193, Mean Platelet Volume 7.5, Neutrophils (%) (Auto) 74.4, Lymphocytes (% ) (Auto) 17.8L, Monocytes (%) (Auto) 6.8, Eosinophils (%) (Auto) 0.0, Basophils (%) (Auto) 1.0, Prothrombin Time 10.7, Prothromb Time International Ratio 1.0, Sodium Level 135L, Potassium Level 4.4, Chloride Level 100, Carbon Dioxide Level 29, Anion Gap 6, Blood Urea Nitrogen 34H, Creatinine 1.2, Estimat Glomerular Filtration Rate 59.9, Glucose Level 132H, Calcium Level 8.8 Current Medications Medications (Trade) Dose Ordered Sig/Simone Route PRN Reason Start Time Stop Time Status Last Admin Dose Admin Acetaminophen (Tylenol) 650 mg Q6H PRN ORAL Mild Pain/Temp > 100.5 10/14/17 12:45 11/12/17 12:44 Acetaminophen/ Hydrocodone Bitart ([place] 10/325) 1 tab Q8H PRN ORAL Severe Pain (Pain Scale 7-10) 10/14/17 13:30 10/21/17 13:29 10/16/17 13:21 Acetaminophen/ Hydrocodone Bitart ([place] 5/325) 1 tab BID ORAL 10/14/17 18:00 10/20/17 08:59 10/16/17 09:42 Albuterol/ Ipratropium (Albuterol/ Ipratropium) 3 ml Q4H PRN HHN Shortness of Breath 10/14/17 12:45 10/17/17 12:44 Albuterol/ Ipratropium (Albuterol/ Ipratropium) 3 ml Q6HRT HHN 10/14/17 13:00 10/18/17 12:59 10/15/17 20:21 Amlodipine Besylate (Norvasc) 5 mg DAILY ORAL 10/15/17 09:00 11/12/17 08:59 10/16/17 09:42 Ceftriaxone Sodium 1 gm/ Dextrose 55 ml @ 110 mls/hr Q24H IVPB 10/15/17 00:00 10/20/17 00:00 10/16/17 01:19 Clonazepam (KlonoPIN) 0.5 mg BID ORAL 10/14/17 18:00 10/20/17 17:59 10/16/17 09:40 Cyclobenzaprine HCl (Flexeril) 10 mg Q12H PRN ORAL Muscle Spasm 10/14/17 12:45 11/13/17 12:44 10/16/17 09:51 Docusate Sodium (Colace) 100 mg DAILYPRN PRN ORAL Constipation 10/14/17 12:45 11/13/17 12:44 Docusate Sodium (Colace) 100 mg THREE TIMES A DAY ORAL 10/14/17 13:00 11/12/17 17:59 10/16/17 13:21 Enoxaparin Sodium (Lovenox) 60 mg EVERY 12 HOURS SUBQ 10/16/17 09:00 10/19/17 09:00 10/16/17 09:46 Furosemide (Lasix) 20 mg BID ORAL 10/14/17 18:00 11/12/17 08:59 10/16/17 09:41 Gabapentin (Neurontin) 600 mg THREE TIMES A DAY ORAL 10/14/17 13:00 11/12/17 08:59 10/16/17 13:21 Lactobacillus Acidophilus (Culturelle) 1 tab THREE TIMES A DAY ORAL 10/14/17 13:00 11/12/17 17:59 10/16/17 13:21 Methylprednisolone Sodium Succinate (Solu-MEDROL) 20 mg EVERY 12 HOURS IVP 10/14/17 21:00 11/13/17 20:59 10/16/17 09:40 Morphine Sulfate (Morphine Sulfate) 1 mg Q6H PRN IVP Moderate Breakthru Pain (5-7) 10/14/17 13:30 10/21/17 13:29 10/15/17 22:01 Multivitamins Therapeutic (Therapeutic Multivitamin) 1 ea DAILY ORAL 10/15/17 09:00 11/12/17 08:59 10/16/17 09:42 Nicotine (Nicoderm) 1 patch DAILY TDERMAL 10/15/17 09:00 11/12/17 11:59 10/16/17 09:41 Pantoprazole (Protonix) 40 mg BEFORE BREAKFAST ORAL 10/15/17 06:30 11/12/17 06:29 10/16/17 06:37 Polyethylene Glycol (Miralax) 17 gm NEEDED PRN ORAL Constipation 10/15/17 12:43 11/12/17 20:59 10/15/17 13:59 Promethazine HCl/ Codeine (Phenergan with Codeine) 5 ml Q4H PRN ORAL For Cough 10/14/17 12:45 11/12/17 12:44 Simethicone (Mylicon) 80 mg QIDPRN PRN ORAL GAS PAIN 10/14/17 13:00 11/13/17 12:59 10/15/17 08:30 Theophylline (Kulwant-Dur) 100 mg EVERY 12 HOURS ORAL 10/14/17 21:00 11/12/17 20:59 10/16/17 09:41 Thiamine HCl (Vitamin B1) 100 mg DAILY ORAL 10/15/17 09:00 11/12/17 08:59 10/16/17 09:43 Tramadol HCl (Ultram) 50 mg Q6H PRN ORAL Moderate Pain (Pain Scale 4-6) 10/14/17 12:45 10/19/17 12:44 Warfarin Sodium (Coumadin per pharmacy) 1 ea DAILY PRN MISC Per rx protocol 10/16/17 08:30 11/15/17 08:29 Warfarin Sodium (Coumadin) 5 mg COUMADIN ORAL 10/16/17 17:00 10/16/17 18:00 Aisha Lopez MD Oct 16, 2017 15:35
--- NOTE | 2017-10-16 16:28 | Diagnostic Imaging Report ---
Indication: Cough Technique: One view of the chest Comparison: 10/12/2017 Findings: Small calcified granulomata are seen scattered throughout both lungs. Lungs and pleural spaces are clear otherwise. The heart size is normal. Lungs appear somewhat hyperinflated. Impression: Evidence of COPD and old granulomatous disease No acute abnormality
[2017-10-16] MEDS ORDERED: PREDNISOLO15 MG/5 M1 ORAL (16:44)
[2017-10-16] MEDS ORDERED: Warfarin Sodium 5mg ORAL SCH (17:00)
[2017-10-16] MEDS ORDERED: Warfarin Sodium 2.5mg ORAL SCH (18:00)
--- NOTE | 2017-10-16 19:45 | Progress Note ---
DATE: 10/16/2017 SUBJECTIVE: This is an elderly male who is currently awake, underwent EGD, was normal. His pain is controlled. Physically, he is doing fine. Short of breath has improved. He is on p.o. prednisone. DISCHARGE DIAGNOSES: 1. Acute COPD. 2. Chronic pain. 3. Dehydration. 4. Abdominal pain. DIET: He is on regular diet. ACTIVITY: As tolerated. DISCHARGE MEDICATIONS: The patient is going to continue home medications plus he is going to get prednisone 10 mg daily for 5 days Thomas Farmer M.D. DR: LUCY JOB#: [id number] CC:
[2017-10-16] MEDS: Morphine Sulfate 2mg/ml Inj(IV/IM USE ONLY) IVP PRN (20:07)
[2017-10-17 00:28] VITALS: BP 119/79
[2017-10-17] MEDS: Albuterol/Ipratropium 3ml neb HHN SCH ×2 (01:17→07:11)
[2017-10-17 04:07] VITALS: BP 125/81
[2017-10-17] MEDS: Morphine Sulfate 2mg/ml Inj(IV/IM USE ONLY) IVP PRN ×2 (05:17→11:07)
[2017-10-17 08:00] VITALS: BP 122/74
[2017-10-17] MEDS: Multivitamin w/Minerals tab ORAL SCH (09:00)
[2017-10-17] MEDS: Theophylline ER 100mg ORAL SCH (09:00)
[2017-10-17 09:01] VITALS: BP 122/74
[2017-10-17] MEDS: Docusate 100mg cap ORAL SCH (09:01)
[2017-10-17] MEDS: Thiamine 100mg tab ORAL SCH (09:01)
[2017-10-17] MEDS: Norco 5mg/325mg tab ORAL SCH (09:01)
[2017-10-17] MEDS: Lactobacillus-GG tablet ORAL SCH (09:01)
[2017-10-17] MEDS: clonazePAM 0.5mg tab ORAL SCH (09:01)
[2017-10-17] MEDS: Enoxaparin 60mg Inj SUBQ SCH (09:05)
[2017-10-17 09:40] LABS: BASOPHILS % (AUTO) 1.4 % (0.0-2.0); EOSINOPHILS % (AUTO) 0.4 % (0.0-3.0); HEMATOCRIT 42.3 % (42.0-52.0); HEMOGLOBIN 13.7 G/DL (14.2-18.0); LYMPHOCYTES % (AUTO) 26.9 % (20.0-45.0); MEAN CORPUSCULAR VOLUME 95 FL (80-99); MONOCYTES % (AUTO) 8.5 % (1.0-10.0); NEUTROPHILS % (AUTO) 62.9 % (45.0-75.0); PLATELET COUNT 270 K/UL (150-450); RED BLOOD COUNT 4.47 M/UL (4.70-6.10); RED CELL DISTRIBUTION WIDTH 13.9 % (11.6-14.8); WHITE BLOOD COUNT 12.3 K/UL (4.8-10.8)
[2017-10-17 09:42] LABS: ANION GAP 9 mmol/L (5-15); BLOOD UREA NITROGEN 34 mg/dL (7-18); CALCIUM 9.2 MG/DL (8.5-10.1); CARBON DIOXIDE 28 MMOL/L (21-32); CHLORIDE 99 MMOL/L (98-107); CREATININE 1.4 MG/DL (0.55-1.30); POTASSIUM 3.6 MMOL/L (3.5-5.1); SODIUM 136 MMOL/L (136-145)
--- NOTE | 2017-10-17 15:44 | GI Progress Note ---
Assessment/Plan Problems: (1) Epigastric pain ICD Codes: R10.13 - Epigastric pain SNOMED: 48829992 (2) Bloating ICD Codes: R14.0 - Abdominal distension (gaseous) SNOMED: 584251169 (3) pain (4) COPD exacerbation ICD Codes: J44.1 - Chronic obstructive pulmonary disease with (acute) exacerbation SNOMED: 061911272 (5) Biliary colic ICD Codes: K80.50 - Calculus of bile duct without cholangitis or cholecystitis without obstruction SNOMED: 73192669 Status: stable Status Narrative Discussed with Dr. Barron. Assessment/Plan Assessment - Bloating - Burning Epigastric pain - COPD exhacerbation - Umbilical hernia - h/o DVT, IVC filter - mild azotemia - s/p EGD >> White-colored duodenal mucosa of doubtful significance, status post biopsy. Recommendations restart coagulation okay for DC per GI standpoint adv diet fu labs The patient was seen and examined at bedside and all new and available data was reviewed in the patients chart. I agree with the above findings, impression and plan. (Patient seen earlier today. Signature stamp does not reflect patient encounter time.). - Mayank Barron MD Subjective Gastrointestinal/Abdominal: Reports: no symptoms Objective Last 24 Hour Vital Signs Date Time Temp Pulse Resp B/P (MAP) Pulse Ox O2 Delivery O2 Flow Rate FiO2 10/17/17 11:37 98.0 10/17/17 11:07 98.0 10/17/17 10:00 98.0 10/17/17 09:01 98.0 10/17/17 09:01 95 122/74 10/17/17 09:00 Nasal Cannula 2.0 10/17/17 08:00 98.0 95 20 122/74 (90) 96 98.0 10/17/17 07:22 90 20 96 Nasal Cannula 2.0 28 10/17/17 07:11 91 20 94 Nasal Cannula 2.0 10/17/17 07:11 Nasal Cannula 2.0 28 10/17/17 07:11 94 Nasal Cannula 2.0 28 10/17/17 05:17 97.5 10/17/17 04:07 97.5 90 17 125/81 (96) 97 97.5 10/17/17 01:31 84 18 96 Nasal Cannula 2.0 28 31/18 01:16 88 18 93 Nasal Cannula 2.0 10/17/17 00:28 97.3 93 20 119/79 (92) 93 97.3 10/17/17 00:11 97.7 10/16/17 23:12 97.7 10/16/17 21:16 Nasal Cannula 2.0 10/16/17 20:07 97.7 10/16/17 19:43 87 18 98 Nasal Cannula 2.0 10/16/17 19:42 97.7 88 20 123/81 (95) 100 97.7 10/16/17 19:33 Nasal Cannula 2.0 10/16/17 19:33 90 20 95 Nasal Cannula 2.0 10/16/17 19:32 95 Nasal Cannula 2.0 10/16/17 16:00 98.4 94 20 137/86 (103) 94 98.4 Intake and Output 10/16/17 10/17/17 19:00 07:00 Intake Total 750 ml 55 ml Output Total 1100 ml 1000 ml Balance -350 ml -945 ml Intake Oral 600 ml IV Total 150 ml 55 ml Output Urine Total 1100 ml 1000 ml # Voids 5 Laboratory Tests Test 10/17/17 09:05 White Blood Count 12.3 K/UL (4.8-10.8) H Red Blood Count 4.47 M/UL (4.70-6.10) L Hemoglobin 13.7 G/DL (14.2-18.0) L Hematocrit 42.3 % (42.0-52.0) Mean Corpuscular Volume 95 FL (80-99) Mean Corpuscular Hemoglobin 30.6 PG (27.0-31.0) Mean Corpuscular Hemoglobin Concent 32.4 G/DL (32.0-36.0) Red Cell Distribution Width 13.9 % (11.6-14.8) Platelet Count 270 K/UL (150-450) Mean Platelet Volume 7.4 FL (6.5-10.1) Neutrophils (%) (Auto) 62.9 % (45.0-75.0) Lymphocytes (%) (Auto) 26.9 % (20.0-45.0) Monocytes (%) (Auto) 8.5 % (1.0-10.0) Eosinophils (%) (Auto) 0.4 % (0.0-3.0) Basophils (%) (Auto) 1.4 % (0.0-2.0) Prothrombin Time 10.2 SEC (9.30-11.50) Prothromb Time International Ratio 1.0 (0.9-1.1) Sodium Level 136 MMOL/L (136-145) Potassium Level 3.6 MMOL/L (3.5-5.1) Chloride Level 99 MMOL/L (98-107) Carbon Dioxide Level 28 MMOL/L (21-32) Anion Gap 9 mmol/L (5-15) Blood Urea Nitrogen 34 mg/dL (7-18) H Creatinine 1.4 MG/DL (0.55-1.30) H Estimat Glomerular Filtration Rate 50.1 mL/min (>60) Glucose Level 108 MG/DL (74-106) H Calcium Level 9.2 MG/DL (8.5-10.1) Height (Feet): 5 Height (Inches): 5.00 Weight (Pounds): 160 General Appearance: WD/WN, no apparent distress, alert Cardiovascular: normal rate Respiratory/Chest: normal breath sounds, no respiratory distress Abdominal Exam: normal bowel sounds, non tender, soft Extremities: normal range of motion, non-tender Sarah Mas NP Oct 17, 2017 15:44
--- NOTE | 2017-10-18 12:15 | Progress Note ---
SUBJECTIVE: This is an elderly male, who is currently feeling better. Shortness of breath is improving. OBJECTIVE: VITAL SIGNS: Blood pressure 130/70, pulse 60s, and respirations 18. No fever. CHEST: Bilateral few crackles. CARDIOVASCULAR: Regular rhythm. No gallop. No murmur. ABDOMEN: Soft. Positive bowel sounds. EXTREMITIES: No CCE. NEUROLOGICAL: Generalized weakness. ASSESSMENT: 1. Acute COPD. 2. Abdominal pain. 3. . 4. Generalized weakness. PLAN: We will continue IV steroids and bronchodilator treatments. PT and OT. EGD and GI workup tomorrow. Thomas aFrmer M.D. DR: Davis JOB#: [id number] CC:
--- NOTE | 2017-10-19 10:36 | Discharge Summary ---
Discharge Summary Discharge Summary _ DATE OF ADMISSION: 10/12/2017 DATE OF DISCHARGE: 10/17/2017 REASON FOR ADMISSION: 71 years old male with past medical history of COPD/emphysema, hypertension, chronic anticoagulation, DNR/DNI status, presented from the [facility] facility for ongoing epigastric pain for several days. Patient had abdominal distention with protruding umbilicus which was new for him. Patient reported normal bowel movements. He denied blood in stool or change in consistency of stool. No nausea ,no vomiting. No fevers or chills . Patient noted to be short of breath and wheezing . Patient admitted to smoking. Laboratory workup revealed no leucocytosis Stable LFT and bilirubin. K-5.3, BUN 50 and creatinine 1.6 Abdominal ultrasound was negative for gallstones. Mildly ectatic common bile, probably related to patient's age , but downstream obstruction was not completely excludable. CT of the abdomen and pelvis revealed no definite acute intra-abdominal process. Normal caliber of common bile duct and no downstream obstructing lesions were demonstrated. Lung bases demonstrated COPD changes. Evidence of IVC filter. Chest x-ray revealed COPD changes, but no acute cardiopulmonary pathology. Evidence of old granulomatous disease.. Patient admitted with diagnoses of COPD exacerbation , epigastric pain , chronic anticoagulation, hypertension , probable biliary colic CONSULTANTS: pulmonary Dr. Lopez GI specialist psychiatrist [facility] COURSE: Patient admitted to medical surgical floor. Patient started on the IV fluids. Supplemental oxygen provided as needed to keep pulse oximetry above 92%. Pulmonary toilet toilet provided with hand-held nebulizer. Patient declined chest physical therapy. Patient started on the IV steroids which were gradually tapered and changed to oral steroids. Trial of theophylline initiated. Antitussive provided as needed basis. Patient was on empiric antibiotic. Sputum culture revealed Pseudomonas and Moraxella. Follow-up chest x-ray still revealed no acute cardiopulmonary pathology, but showed changes consistent with COPD/emphysema. Patient was counseled on smoking cessation. Patient started on nicotine patch . GI closely followed Pain management was addressed. Patient undergone upper endoscopy which revealed white colored duodenal mucosa of the doubtful significance, status post biopsy. Biopsy results still pending . GI specialist recommended to resume oral diet and follow-up with biopsy results. Patient was able to tolerate diet. Patient started on probiotics and PPI. Simethicone provided as needed. Bowel regimen instituted. Supportive care provided. Blood pressure was managed with calcium channel breonna. PAUL inhibitor was stopped due to renal insufficiency and hyperkalemia. Renal parameters and electrolytes were closely monitored, nephrotoxins were avoided. Electrolytes corrected as needed. Prior to discharge potassium down to 3.6 , BUN 34 and creatinine down to 1.4. Pain was controlled Hemoglobin and hematocrit remained stable, at baseline , no trend down. d Anticoagulation resumed. Patient clinically improved and was stable for discharge back to [facility] facility for continuation of care. FINAL DIAGNOSES: COPD exacerbation pleuritic chest pain emphysema chronic anticoagulation hypertension epigastric pain status post EGD biliary colic current smoker nicotine dependency with withdrawal acute kidney injury versus chronic renal insufficiency DISCHARGE MEDICATIONS: See Medication Reconciliation list. DISCHARGE INSTRUCTIONS: Patient was discharged to [facility] facility follow-up with medical doctor at the facility Sarah Jose NP Oct 19, 2017 10:36
== END 2017-10-17 11:45 | DRG 191 ==
LOC: EDBD 15:56 → EMR 16:55 → 2E 17:55 → EDBEDREQ 19:47 → UNDODISIN 21:13 → EDBEDREQ 21:48 → 2E 23:12 → 4W 10-14 12:21
PROC: 0DB98ZX Excision of Duodenum, Via Natural or Artificial Opening Endoscopic, Diagnostic (ICD-10-PCS; principal; 2017-10-16 08:11)
PROC: 0DB78ZX Excision of Stomach, Pylorus, Via Natural or Artificial Opening Endoscopic, Diagnostic (ICD-10-PCS; principal; 2017-10-16 08:11)
DX: J44.1 Chronic obstructive pulmonary disease with (acute) exacerbation (principal); N17.9 Acute kidney failure, unspecified; F17.203 Nicotine dependence unspecified, with withdrawal; K80.50 Calculus of bile duct without cholangitis or cholecystitis without obstruction; F17.200 Nicotine dependence, unspecified, uncomplicated; E87.5 Hyperkalemia; F41.9 Anxiety disorder, unspecified; F32.9 Major depressive disorder, single episode, unspecified; Z88.8 Allergy status to other drugs, medicaments and biological substances; R07.81 Pleurodynia; Z66 Do not resuscitate; K42.9 Umbilical hernia without obstruction or gangrene; Z86.718 Personal history of other venous thrombosis and embolism; M54.32 Sciatica, left side; K21.9 Gastro-esophageal reflux disease without esophagitis; Z79.01 Long term (current) use of anticoagulants; G89.29 Other chronic pain; E86.0 Dehydration; I12.9 Hypertensive chronic kidney disease with stage 1 through stage 4 chronic kidney disease, or unspecified chronic kidney disease; N18.9 Chronic kidney disease, unspecified
CPT/HCPCS: 36415; 71045; 74177; 76700; 80048; 80053; 81003; 82550; 83690; 83735; 84100; 84484; 85007; 85025; 85610; 87070; 87081; 87181; 87205; 93005; 94003; 94150; 94640; 94664; 94760; 99285; J7620